=== PATIENT | female | born 2000 | race Caucasian/White ===

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

== ENCOUNTER 2019-01-18 02:50 | Emergency (ER) | payer BC ==
--- NOTE | 2019-01-18 03:06 | EDPHYS ---
Physician Documentation [facility] Name: Troy Salazar Age: 18 yrs Sex: Female : 2000 Arrival Date: 01/18/2019 Time: 02:51 Bed 18 Private MD: ED Physician Javier Hua HPI: 01/18 03:02 This 18 yrs old Female presents to ER via Ambulatory with complaints of Ear gs Pain. 03:02 The patient presents with pain. The complaints affect the right ear. Onset: The gs symptoms/episode began/occurred yesterday. Modifying factors: The symptoms are alleviated by nothing, the symptoms are aggravated by nothing. Associated signs and symptoms: Pertinent negatives: fever, vomiting. Severity of symptoms: At their worst the symptoms were moderate in the emergency department the symptoms are unchanged. The patient has not experienced similar symptoms in the past. The patient has not recently seen a physician. 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 - Social history:: Smoking status: Patient uses tobacco products, denies chronic smoking, but will smoke occasionally, Patient uses alcohol, occasionally. - Ebola Screening: : Patient negative for fever greater than or equal to 101.5 degrees Fahrenheit, and additional compatible Ebola Virus Disease symptoms Patient denies exposure to infectious person Patient denies travel to an Ebola-affected area in the 21 days before illness onset. ROS: 03:02 All other systems are negative. gs Exam: 03:02 Head/Face: Normocephalic, atraumatic. Eyes: Pupils equal round and reactive to light, gs extra-ocular motions intact. Lids and lashes normal. Conjunctiva and sclera are non-icteric and not injected. Cornea within normal limits. Periorbital areas with no swelling, redness, or edema. Neck: Trachea midline, no thyromegaly or masses palpated, and no cervical lymphadenopathy. Supple, full range of motion without nuchal rigidity, or vertebral point tenderness. No Meningismus. Chest/axilla: Normal chest wall appearance and motion. Nontender with no deformity. No lesions are appreciated. Cardiovascular: Regular rate and rhythm with a normal S1 and S2. No gallops, murmurs, or rubs. Normal PMI, no JVD. No pulse deficits. Respiratory: Lungs have equal breath sounds bilaterally, clear to auscultation and percussion. No rales, rhonchi or wheezes noted. No increased work of breathing, no retractions or nasal flaring. Abdomen/GI: Soft, non-tender, with normal bowel sounds. No distension or tympany. No guarding or rebound. No evidence of tenderness throughout. Back: No spinal tenderness. No costovertebral tenderness. Full range of motion. Skin: Warm, dry with normal turgor. Normal color with no rashes, no lesions, and no evidence of cellulitis. MS/ Extremity: Pulses equal, no cyanosis. Neurovascular intact. Full, normal range of motion. Neuro: Awake and alert, GCS 15, oriented to person, place, time, and situation. Cranial nerves II-XII grossly intact. Motor strength 5/5 in all extremities. Sensory grossly intact. Cerebellar exam normal. Normal gait. 03:02 Constitutional: The patient appears alert, awake, uncomfortable. 03:02 ENT: Ear canal(s): are normal, TM's: dullness, fluid levels, loss of bony landmarks, that is pronounced, on the right. Vital Signs: 02:50 BP 132 / 83; Pulse 102; Resp 18; Temp 98.2(O); Pulse Ox 99% on R/A; Weight 129.27 kg fc (R); Height 5 ft. 7 in. (170.18 cm) (R); Pain 9/10; 02:50 Body Mass Index 44.64 (129.27 kg, 170.18 cm) fc MDM: 02:59 Patient medically screened. gs 03:02 Differential diagnosis: otitis media. Data reviewed: vital signs, nurses notes. gs Response to treatment: the patient's symptoms have mildly improved after treatment. Administered Medications: 03:15 Drug: Emmet 5 mg-325 mg 1 tabs Route: PO; ed1 03:15 Follow up: Response: Medication administered at discharge. ed1 Disposition: 01/18/19 03:04 Discharged to Home. Impression: Bullous myringitis, right ear. - Condition is Stable. - Discharge Instructions: Otitis Media, Adult. - Prescriptions for Tylenol- Codeine #4 300-60 mg Oral Tablet - take 1 tablet by ORAL route every 6 hours As needed; 10 tablet. Zithromax Z- Fransico 250 mg Oral Tablet - take 1 tablet by ORAL route as directed for 5 days Day 1 - take two (2) tablets one time. Day 2, 3, 4 , 5 take one (1) tablet once daily.; 6 tablet. Ciprodex 0.3- 0.1 % Otic Drops, Suspension - instill 4 drop by OTIC route every 12 hours for 7 days , for ears ONLY; 1 Container. - Work release form, Medication Reconciliation Form, Thank You Letter, Antibiotic Education, Prescription Opioid Use form. - Follow up: Private Physician; When: 2 - 3 days; Reason: Re-evaluation by your physician. Signatures: Areli Ramirez RN RN Anne Phan RN RN ed1 Javier Hua MD MD Corrections: (The following items were deleted from the chart) 03:16 03:04 01/18/2019 03:04 Discharged to Home. Impression: Bullous myringitis, right ear. ed1 Condition is Stable. Forms are Medication Reconciliation Form, Thank You Letter, Antibiotic Education, Prescription Opioid Use. Follow up: Private Physician; When: 2 - 3 days; Reason: Re-evaluation by your physician. gs
--- NOTE | 2019-01-18 03:06 | ER ---
Nurse's Notes [facility] Name: Troy Salazar Age: 18 yrs Sex: Female : 2000 Arrival Date: 01/18/2019 Time: 02:51 Bed 18 Private MD: Diagnosis: Bullous myringitis, right ear Presentation: 01/18 02:50 Presenting complaint: Patient states: that she is having right ear pain that radiates fc to the right jaw. Denies sore throat. Started yesterday. Transition of care: patient was not received from another setting of care. Onset of symptoms was January 18, 2019. Risk Assessment: Do you want to hurt yourself or someone else? Patient reports no desire to harm self or others. Initial Sepsis Screen: Does the patient meet any 2 criteria? HR > 90 bpm. Yes Does the patient have a suspected source of infection? No. Patient's initial sepsis screen is negative. Care prior to arrival: Medication(s) given: Tylenol, last at 2100 Tylenol #3 last at 1500. 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 - Social history:: Smoking status: Patient uses tobacco products, denies chronic smoking, but will smoke occasionally, Patient uses alcohol, occasionally. - Ebola Screening: : Patient negative for fever greater than or equal to 101.5 degrees Fahrenheit, and additional compatible Ebola Virus Disease symptoms Patient denies exposure to infectious person Patient denies travel to an Ebola-affected area in the 21 days before illness onset. Screenin:01 Abuse screen: Denies threats or abuse. Nutritional screening: No deficits noted. fc Tuberculosis screening: No symptoms or risk factors identified. Fall Risk None identified. Assessment: 03:13 General: Appears uncomfortable, Behavior is calm, cooperative. Pain: Complains of pain ed1 in right ear Pain currently is 9 out of 10 on a pain scale. Quality of pain is described as throbbing, Pain began 1 day ago. Is continuous. Neuro: Level of Consciousness is awake, alert, obeys commands, Oriented to person, place, time, situation. Cardiovascular: Denies chest pain, Heart tones S1 S2 present. Respiratory: Reports cough that is non-productive, Airway is patent Respiratory effort is even, unlabored, Respiratory pattern is regular, symmetrical, Breath sounds are clear bilaterally. GI: No signs and/or symptoms were reported involving the gastrointestinal system. : No signs and/or symptoms were reported regarding the genitourinary system. EENT: Reports pain when swallowing. Derm: Skin is intact, is healthy with good turgor, Skin is dry, Skin is normal, Skin temperature is warm. Musculoskeletal: Circulation, motion, and sensation intact. Range of motion: intact in all extremities. Vital Signs: 02:50 BP 132 / 83; Pulse 102; Resp 18; Temp 98.2(O); Pulse Ox 99% on R/A; Weight 129.27 kg fc (R); Height 5 ft. 7 in. (170.18 cm) (R); Pain 9/10; 02:50 Body Mass Index 44.64 (129.27 kg, 170.18 cm) ED Course: 02:50 Arm band placed on Patient placed in an exam room, on a stretcher. fc 02:51 Patient arrived in ED. es 02:52 Anne Phan, RN is Primary Nurse. ed1 02:54 Javier Hua MD is Attending Physician. 02:58 Triage completed. fc 03:01 Patient has correct armband on for positive identification. Bed in low position. Call light in reach. 03:01 No provider procedures requiring assistance completed. fc 03:13 Patient did not have IV access during this emergency room visit. ed1 Administered Medications: 03:15 Drug: Lynbrook 5 mg-325 mg 1 tabs Route: PO; ed1 03:15 Follow up: Response: Medication administered at discharge. ed1 Outcome: 03:04 Discharge ordered by . gs 03:13 Discharged to home ambulatory. ed1 03:13 Condition: good 03:13 Discharge instructions given to patient, Instructed on discharge instructions, follow up and referral plans. medication usage, Demonstrated understanding of instructions, follow-up care, medications, Prescriptions given X 3. 03:16 Patient left the ED. ed1 Signatures: Tawnya Novak Felicia, RN RN fc Anne Phan RN RN ed1 Javier Hua MD MD gs
[2019-01-18] MEDS ORDERED: HYDROCODONE/APAP 5/325 MG TAB ONE (03:23)
== END 2019-01-18 03:16 | disposition home or self-care (01) ==
LOC: ER 02:50
DX: H73.011 Bullous myringitis, right ear (principal); Z88.8 Allergy status to other drugs, medicaments and biological substances; Z72.0 Tobacco use
CPT/HCPCS: 99283

== ENCOUNTER 2019-01-21 11:54 | Emergency (ER) | payer BC ==
--- NOTE | 2019-01-21 12:44 | ER ---
Nurse's Notes [facility] Name: Troy Salazar Age: 18 yrs Sex: Female : 2000 Arrival Date: 01/21/2019 Time: 11:56 Bed 12 Private MD: Hammad Herrera Diagnosis: Unspecified otitis externa, right ear Presentation: 01/21 12:18 Presenting complaint: Patient states: seen Thursday for ear infection, seen Thursday at er [facility] for the infection, taking antibiotics, seen at clinic today but they said my ear canal was closed up and to come back to the er. Transition of care: patient was not received from another setting of care. Onset of symptoms was January 17, 2019. Risk Assessment: Do you want to hurt yourself or someone else? Patient reports no desire to harm self or others. Initial Sepsis Screen: Does the patient meet any 2 criteria? No. Patient's initial sepsis screen is negative. Does the patient have a suspected source of infection? No. Patient's initial sepsis screen is negative. Care prior to arrival: None. 12:18 Method Of Arrival: Ambulatory 12:18 Acuity: KAVON 4 Triage Assessment: 12:20 General: Appears in no apparent distress. uncomfortable, Behavior is calm, cooperative, ch appropriate for age. Pain: Complains of pain in right ear Pain currently is 9 out of 10 on a pain scale. EENT: Reports pain in right ear. 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 - Social history:: Smoking status: Patient/guardian denies using tobacco, Patient/guardian denies using alcohol, street drugs. - Ebola Screening: : Patient negative for fever greater than or equal to 101.5 degrees Fahrenheit, and additional compatible Ebola Virus Disease symptoms Patient denies exposure to infectious person Patient denies travel to an Ebola-affected area in the 21 days before illness onset No symptoms or risks identified at this time. Screenin:47 Abuse screen: Denies threats or abuse. Denies injuries from another. Nutritional iw screening: No deficits noted. Tuberculosis screening: No symptoms or risk factors identified. Fall Risk None identified. Assessment: 12:30 General: Appears in no apparent distress. Pain: Complains of pain in right ear. Neuro: iw Level of Consciousness is awake, alert, obeys commands, Moves all extremities. Cardiovascular: Patient's skin is warm and dry. Respiratory: Respiratory effort is even, unlabored. EENT: Ear canal w/ drainage noted from right ear. Derm: Skin is intact, is healthy with good turgor. Musculoskeletal: Range of motion: intact in all extremities. Vital Signs: 12:20 BP 121 / 83; Pulse 76; Resp 15; Temp 98.5; Pulse Ox 99% on R/A; Weight 129.27 kg; ch Height 5 ft. 6 in. (167.64 cm); Pain 8/10; 12:20 Body Mass Index 46.00 (129.27 kg, 167.64 cm) ED Course: 11:56 Patient arrived in ED. rg4 11:56 Hammad Herrera MD is Private Physician. rg4 12:03 Poly Grey FNP-C is [facility]. kb 12:03 Eduard Shine MD is Attending Physician. kb 12:19 Triage completed. ch 12:20 Arm band placed on left wrist. Patient placed in an exam room, on a stretcher. 12:30 Lynda Estes, RN is Primary Nurse. iw 12:30 Patient has correct armband on for positive identification. iw 12:47 No provider procedures requiring assistance completed. Patient did not have IV access iw during this emergency room visit. Administered Medications: No medications were administered Outcome: 12:43 Discharge ordered by . kb 12:47 Discharged to home ambulatory, with family. iw 12:47 Condition: good 12:47 Discharge instructions given to patient, Instructed on discharge instructions, follow up and referral plans. Demonstrated understanding of instructions, follow-up care. 12:48 Patient left the ED. iw Signatures: Poly Grey FNP-C FNP-Ckb Hammond, Christina, RN RN Lynda Estes, RN RN Desire Vaughan rg4
--- NOTE | 2019-01-21 12:44 | EDPHYS ---
Physician Documentation [facility] Name: Troy Salazar Age: 18 yrs Sex: Female : 2000 Arrival Date: 01/21/2019 Time: 11:56 Bed 12 Private MD: Hammad Herrera ED Physician Eduard Shine HPI: 01/21 12:38 This 18 yrs old Female presents to ER via Ambulatory with complaints of Ear kb Pain. 12:38 The patient presents with drainage, a fullness, pain, tenderness. The complaints affect kb the right ear. Onset: The symptoms/episode began/occurred 4 day(s) ago. Modifying factors: The symptoms are alleviated by nothing, the symptoms are aggravated by nothing. Associated signs and symptoms: The patient has no apparent associated signs or symptoms. Severity of symptoms: At their worst the symptoms were moderate in the emergency department the symptoms are unchanged. The patient has not experienced similar symptoms in the past. The patient has been recently seen by a physician:. Pt reports she has had an ear infection for 4 days. Has been seen three times, put on clindamycin, a z-pack and ciprodex. Reports pain and fever has not gotten better so she went back to clinic today and was told she had too much swelling so they don't think the drops could get in. . 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 - Social history:: Smoking status: Patient/guardian denies using tobacco, Patient/guardian denies using alcohol, street drugs. - Ebola Screening: : Patient negative for fever greater than or equal to 101.5 degrees Fahrenheit, and additional compatible Ebola Virus Disease symptoms Patient denies exposure to infectious person Patient denies travel to an Ebola-affected area in the 21 days before illness onset No symptoms or risks identified at this time. ROS: 12:41 Constitutional: Negative for fever, chills, and weight loss, Cardiovascular: Negative kb for chest pain, palpitations, and edema, Respiratory: Negative for shortness of breath, cough, wheezing, and pleuritic chest pain, Abdomen/GI: Negative for abdominal pain, nausea, vomiting, diarrhea, and constipation, MS/Extremity: Negative for injury and deformity, Skin: Negative for injury, rash, and discoloration, Neuro: Negative for headache, weakness, numbness, tingling, and seizure. 12:41 ENT: Positive for drainage from ear(s), ear pain. Exam: 12:41 Constitutional: This is a well developed, well nourished patient who is awake, alert, kb and in no acute distress. Head/Face: Normocephalic, atraumatic. Neck: Trachea midline, no thyromegaly or masses palpated, and no cervical lymphadenopathy. Supple, full range of motion without nuchal rigidity, or vertebral point tenderness. No Meningismus. Chest/axilla: Normal chest wall appearance and motion. Nontender with no deformity. No lesions are appreciated. Cardiovascular: Regular rate and rhythm with a normal S1 and S2. No gallops, murmurs, or rubs. Normal PMI, no JVD. No pulse deficits. Respiratory: Lungs have equal breath sounds bilaterally, clear to auscultation and percussion. No rales, rhonchi or wheezes noted. No increased work of breathing, no retractions or nasal flaring. Abdomen/GI: Soft, non-tender, with normal bowel sounds. No distension or tympany. No guarding or rebound. No evidence of tenderness throughout. Skin: Warm, dry with normal turgor. Normal color with no rashes, no lesions, and no evidence of cellulitis. MS/ Extremity: Pulses equal, no cyanosis. Neurovascular intact. Full, normal range of motion. Neuro: Awake and alert, GCS 15, oriented to person, place, time, and situation. Cranial nerves II-XII grossly intact. Motor strength 5/5 in all extremities. Sensory grossly intact. Cerebellar exam normal. Normal gait. 12:41 ENT: External ear(s): are unremarkable, Ear canal(s): purulent discharge, that is moderate, in the right canal, swelling, that is severe, of the right canal, TM's: not visable, because of discharge, Examination of the other ear shows no obvious abnormality, Nose: is normal, Mouth: is normal, Posterior pharynx: is normal. Vital Signs: 12:20 BP 121 / 83; Pulse 76; Resp 15; Temp 98.5; Pulse Ox 99% on R/A; Weight 129.27 kg; ch Height 5 ft. 6 in. (167.64 cm); Pain 8/10; 12:20 Body Mass Index 46.00 (129.27 kg, 167.64 cm) ch MDM: 12:21 Patient medically screened. kb 12:43 Data reviewed: vital signs, nurses notes. Data interpreted: Pulse oximetry: on room air kb is 99 %. Interpretation: normal. Counseling: I had a detailed discussion with the patient and/or guardian regarding: the historical points, exam findings, and any diagnostic results supporting the discharge/admit diagnosis, the need for outpatient follow up, an ENT specialist, to return to the emergency department if symptoms worsen or persist or if there are any questions or concerns that arise at home. Administered Medications: No medications were administered Disposition: 13:47 Co-signature as Attending Physician, Eduard Shine MD I agree with the assessment and alva plan of care. Disposition: 01/21/19 12:43 Discharged to Home. Impression: Unspecified otitis externa, right ear. - Condition is Stable. - Discharge Instructions: Otitis Externa, [id number], Ear Drops, Adult, [id number]. - Medication Reconciliation Form, Thank You Letter, Antibiotic Education, Prescription Opioid Use form. - Follow up: Emergency Department; When: As needed; Reason: Worsening of condition. Follow up: Private Physician; When: 2 - 3 days; Reason: Recheck today's complaints, Continuance of care, Re-evaluation by your physician. - Notes: Continue previously prescribed antibiotics. Signatures: Poly Grey, DAVID-C DAVID-Gabriela Barraza, RN Eduard Baeza ch, MD MD cha Williams, Irene RN RN iw Corrections: (The following items were deleted from the chart) 12:48 12:43 01/21/2019 12:43 Discharged to Home. Impression: Unspecified otitis externa, iw right ear. Condition is Stable. Forms are Medication Reconciliation Form, Thank You Letter, Antibiotic Education, Prescription Opioid Use. Follow up: Emergency Department; When: As needed; Reason: Worsening of condition. Follow up: Private Physician; When: 2 - 3 days; Reason: Recheck today's complaints, Continuance of care, Re-evaluation by your physician. kb
[2019-01-21] MEDS ORDERED: IBUPROFEN 400 MG TAB ONE (12:57)
== END 2019-01-21 12:48 | disposition home or self-care (01) ==
LOC: ER 11:54
DX: H60.91 Unspecified otitis externa, right ear (principal); F84.5 Asperger's syndrome; Z88.1 Allergy status to other antibiotic agents
CPT/HCPCS: 99281

== ENCOUNTER 2019-04-21 22:18 | Emergency (ER) | payer BC ==
[2019-04-21 23:05] LABS: Urine Bacteria >50 /HPF (<20); Urine Culture Reflex Order NOT NEEDED; Urine RBC <5 /HPF (NONE SEEN)
--- NOTE | 2019-04-21 23:15 | ER ---
Nurse's Notes [facility] Name: Troy Salazar Age: 18 yrs Sex: Female : 2000 Arrival Date: 04/21/2019 Time: 22:22 Bed 13 Private MD: Hammad Herrera Diagnosis: Urinary tract infection, site not specified Presentation: 04/21 22:29 Presenting complaint: Patient states: My stomach started camping this morning, and then jb4 my bladder started burning, when I peed it felt like my bladder was not empty, each time I pee it harley. 22:29 Transition of care: patient was not received from another setting of care. Onset of jb4 symptoms was April 21, 2019. Risk Assessment: Do you want to hurt yourself or someone else? Patient reports no desire to harm self or others. Initial Sepsis Screen: Does the patient meet any 2 criteria? HR > 90 bpm. Yes Does the patient have a suspected source of infection? Yes: Acute abdominal pain. Care prior to arrival: None. 22:29 Method Of Arrival: Ambulatory jb4 22:29 Acuity: KAVON 3 jb4 Historical: - Allergies: 22:29 Ceftin; jb4 22:29 durafin; jb4 22:29 Vantin; jb4 22:29 Duricef; jb4 - Home Meds: 22:29 Trazodone Oral [Active]; jb4 - PMHx: 22:29 asbergers; insomnia; jb4 - PSHx: 22:29 None; jb4 - Immunization history:: Adult Immunizations up to date. - Social history:: Smoking status: Patient/guardian denies using tobacco, Patient/guardian denies using alcohol. - Ebola Screening: : No symptoms or risks identified at this time. Screenin:29 Abuse screen: Denies threats or abuse. Nutritional screening: No deficits noted. jb4 Tuberculosis screening: No symptoms or risk factors identified. Fall Risk None identified. Assessment: 22:40 General: Appears in no apparent distress. comfortable, Behavior is calm, cooperative, jb4 appropriate for age. Pain: Complains of pain in abdomen Pain does not radiate. Pain currently is 4 out of 10 on a pain scale. Quality of pain is described as crampy, Pain began this morning. Neuro: Level of Consciousness is awake, alert, obeys commands, Oriented to person, place, time, situation. Cardiovascular: Patient's skin is warm and dry. Respiratory: Airway is patent Respiratory effort is even, unlabored, Respiratory pattern is regular, symmetrical. GI: Abdomen is non-distended, obese, Reports cramping. : Reports burning with urination, cramping, discharge, green, urinary frequency. EENT: No signs and/or symptoms were reported regarding the EENT system. Derm: Skin is intact, Skin is pink, warm \T\ dry. Musculoskeletal: Circulation, motion, and sensation intact. 23:47 Reassessment: Patient appears in no apparent distress at this time. Patient and/or jb4 family updated on plan of care and expected duration. Pain level reassessed. Patient is alert, oriented x 3, equal unlabored respirations, skin warm/dry/pink. Pt left ED ambulatory with steady gate, verbalized understanding of d/c and follow up instrucitons. Vital Signs: 22:29 BP 133 / 71; Pulse 106; Resp 16; Temp 98.7(O); Pulse Ox 99% on R/A; Weight 132.9 kg jb4 (R); Height 5 ft. 5 in. (165.10 cm); Pain 4/10; 23:30 BP 136 / 88; Pulse 85; Resp 16; Pulse Ox 100% on R/A; jb4 22:29 Body Mass Index 48.76 (132.90 kg, 165.10 cm) jb4 ED Course: 22:22 Patient arrived in ED. es 22:22 Hammad Herrera MD is Private Physician. es 22:29 [facility]C [facility]. snw 22:29 Eduard Shine MD is Attending Physician. snw 22:29 Arm band placed on right wrist. jb4 22:29 Patient has correct armband on for positive identification. Placed in gown. Bed in low jb4 position. Call light in reach. Side rails up X 1. Pulse ox on. NIBP on. 22:31 Mihir Kaplan, BRUNO is Primary Nurse. jb4 22:34 Triage completed. jb4 23:11 Hammad Herrera MD is Referral Physician. snw 23:49 No provider procedures requiring assistance completed. Patient did not have IV access jb4 during this emergency room visit. Administered Medications: 23:40 Drug: Bactrim (160 mg-800 mg (DS) 1 tablet Route: PO; jb4 23:45 Follow up: Response: No adverse reaction; Medication administered at discharge. jb4 23:40 Drug: Pyridium 200 mg Route: PO; jb4 23:46 Follow up: Response: No adverse reaction; Medication administered at discharge. jb4 Outcome: 23:11 Discharge ordered by MD. cuevas 23:49 Discharged to home ambulatory. jb4 23:49 Condition: stable 23:49 Discharge instructions given to patient, Instructed on discharge instructions, follow up and referral plans. medication usage, Demonstrated understanding of instructions, follow-up care, medications, Prescriptions given X 2. 23:50 Patient left the ED. jb4 Signatures: Taylor Vigil, CASINO FLOORPERSON-C CASINO FLOORPERSON-Csnw Tawnya Novak James, RN RN jb4 Corrections: (The following items were deleted from the chart) 23:48 22:40 GI: Abdomen is non-distended, obese, Reports cramping, jb4 jb4
--- NOTE | 2019-04-21 23:15 | EDPHYS ---
Physician Documentation [facility] Name: Troy Salazar Age: 18 yrs Sex: Female : 2000 Arrival Date: 04/21/2019 Time: 22:22 Bed 13 Private MD: aHmmad Herrera ED Physician Eduard Shine HPI: 04/21 23:33 This 18 yrs old Female presents to ER via Ambulatory with complaints of snw Abdominal Pain, Bladder pain. 23:33 The patient presents with abdominal pain suprapubic. Onset: The symptoms/episode snw began/occurred gradually, 3 day(s) ago, and became worse and became persistent. The symptoms do not radiate. Associated signs and symptoms: Pertinent positives: dysuria, nausea, Pertinent negatives: fever, vomiting. The symptoms are described as crampy, sharp. Severity of pain: At its worst the pain was moderate. The patient has not experienced similar symptoms in the past. It is unknown whether or not the patient has recently seen a physician. Historical: - Allergies: 22:29 Ceftin; jb4 22:29 durafin; jb4 22:29 Vantin; jb4 22:29 Duricef; jb4 - Home Meds: 22:29 Trazodone Oral [Active]; jb4 - PMHx: 22:29 asbergers; insomnia; jb4 - PSHx: 22:29 None; jb4 - Immunization history:: Adult Immunizations up to date. - Social history:: Smoking status: Patient/guardian denies using tobacco, Patient/guardian denies using alcohol. - Ebola Screening: : No symptoms or risks identified at this time. ROS: 23:31 Constitutional: Negative for fever, chills, and weight loss, Eyes: Negative for injury, snw pain, redness, and discharge, ENT: Negative for injury, pain, and discharge, Neck: Negative for injury, pain, and swelling, Respiratory: Negative for shortness of breath, cough, wheezing, and pleuritic chest pain. 23:31 Cardiovascular: Negative for chest pain, palpitations, and edema, Abdomen/GI: Negative for abdominal pain, nausea, vomiting, diarrhea, and constipation, Back: Negative for injury and pain, MS/Extremity: Negative for injury and deformity, Skin: Negative for injury, rash, and discoloration, Neuro: Negative for headache, weakness, numbness, tingling, and seizure. 23:31 : Positive for urinary symptoms, urinary frequency, small amounts, burning with urination. Exam: 22:37 Constitutional: This is a well developed, well nourished patient who is awake, alert, snw and in no acute distress. Head/Face: Normocephalic, atraumatic. Eyes: Pupils equal round and reactive to light, extra-ocular motions intact. Lids and lashes normal. Conjunctiva and sclera are non-icteric and not injected. Cornea within normal limits. Periorbital areas with no swelling, redness, or edema. ENT: Nares patent. No nasal discharge, no septal abnormalities noted. Tympanic membranes are normal and external auditory canals are clear. Oropharynx with no redness, swelling, or masses, exudates, or evidence of obstruction, uvula midline. Mucous membranes moist. Neck: Trachea midline, no thyromegaly or masses palpated, and no cervical lymphadenopathy. Supple, full range of motion without nuchal rigidity, or vertebral point tenderness. No Meningismus. Chest/axilla: Normal chest wall appearance and motion. Nontender with no deformity. No lesions are appreciated. Cardiovascular: Regular rate and rhythm with a normal S1 and S2. No gallops, murmurs, or rubs. Normal PMI, no JVD. No pulse deficits. Respiratory: Lungs have equal breath sounds bilaterally, clear to auscultation and percussion. No rales, rhonchi or wheezes noted. No increased work of breathing, no retractions or nasal flaring. Back: No spinal tenderness. No costovertebral tenderness. Full range of motion. Skin: Warm, dry with normal turgor. Normal color with no rashes, no lesions, and no evidence of cellulitis. MS/ Extremity: Pulses equal, no cyanosis. Neurovascular intact. Full, normal range of motion. Neuro: Awake and alert, GCS 15, oriented to person, place, time, and situation. Cranial nerves II-XII grossly intact. Motor strength 5/5 in all extremities. Sensory grossly intact. Cerebellar exam normal. Normal gait. Psych: Awake, alert, with orientation to person, place and time. Behavior, mood, and affect are within normal limits. 22:37 Abdomen/GI: Inspection: abdomen appears normal, Bowel sounds: normal, Palpation: mild abdominal tenderness, in the suprapubic area. Vital Signs: 22:29 BP 133 / 71; Pulse 106; Resp 16; Temp 98.7(O); Pulse Ox 99% on R/A; Weight 132.9 kg jb4 (R); Height 5 ft. 5 in. (165.10 cm); Pain 4/10; 23:30 BP 136 / 88; Pulse 85; Resp 16; Pulse Ox 100% on R/A; jb4 22:29 Body Mass Index 48.76 (132.90 kg, 165.10 cm) jb4 MDM: 22:35 Patient medically screened. alva 23:32 Data reviewed: vital signs, nurses notes. Data interpreted: Pulse oximetry: on room air snw is 99 %. Interpretation: normal. Counseling: I had a detailed discussion with the patient and/or guardian regarding: the historical points, exam findings, and any diagnostic results supporting the discharge/admit diagnosis, lab results, the need for outpatient follow up, to return to the emergency department if symptoms worsen or persist or if there are any questions or concerns that arise at home. Special discussion: Based on the patient's Hx, exam, and Dx evaluation, there is no indication for emergent surgery or inpatient Tx. It is understood by the patient/guardian that if the Sx's persist or worsen they need to return immediately for re-evaluation. Based on the history and exam findings, there is no indication for further emergent testing or inpatient evaluation. I discussed with the patient/guardian the need to see the primary care provider for further evaluation of the symptoms. 04/21 22:36 Order name: Urine Culture w 04/21 22:36 Order name: Urine Microscopic Only; Complete Time: 23:10 w 04/21 23:06 Order name: Urine Dipstick--Ancillary (enter results) [facility] 04/21 23:06 Order name: Urine --Ancillary (enter results); Complete Time: 23:30 [facility] 04/21 23:08 Order name: Urine Dipstick-Ancillary; Complete Time: 23:30 EDMS 04/21 22:36 Order name: Urine Test (obtain specimen); Complete Time: 23:29 snw 04/21 22:36 Order name: Urine Dipstick-Ancillary (obtain specimen); Complete Time: 23:29 snw Administered Medications: 23:40 Drug: Bactrim (160 mg-800 mg (DS) 1 tablet Route: PO; jb4 23:45 Follow up: Response: No adverse reaction; Medication administered at discharge. jb4 23:40 Drug: Pyridium 200 mg Route: PO; jb4 23:46 Follow up: Response: No adverse reaction; Medication administered at discharge. jb4 Disposition: 04/22 14:00 Co-signature as Attending Physician, Eduard Shine MD I agree with the assessment and alva plan of care. Disposition: 04/21/19 23:11 Discharged to Home. Impression: Urinary tract infection, site not specified. - Condition is Stable. - Discharge Instructions: Urinary Tract Infection, Adult, Rehydration, Adult. - Prescriptions for Bactrim DS 800- 160 mg Oral Tablet - take 1 tablet by ORAL route every 12 hours for 10 days; 20 tablet. promethazine 25 mg Oral Tablet - take 1 tablet by ORAL route every 6 hours As needed; 20 tablet. - Work release form, Medication Reconciliation Form, Thank You Letter, Antibiotic Education, Prescription Opioid Use form. - Follow up: Hammad Herrera MD; When: 2 - 3 days; Reason: Recheck today's complaints, Continuance of care, Re-evaluation by your physician. Follow up: Emergency Department; When: As needed; Reason: Worsening of condition. Signatures: Dispatcher [employer] Eduard Santiago MD MD cha Therrien, Shelly, PEDIATRIC PATHOLOGIST-C PEDIATRIC PATHOLOGIST-Csnw Mihir Kaplan RN RN jb4 Corrections: (The following items were deleted from the chart) 04/21 23:50 23:11 04/21/2019 23:11 Discharged to Home. Impression: Urinary tract infection, site jb4 not specified. Condition is Stable. Forms are Medication Reconciliation Form, Thank You Letter, Antibiotic Education, Prescription Opioid Use. Follow up: Hammad Herrera; When: 2 - 3 days; Reason: Recheck today's complaints, Continuance of care, Re-evaluation by your physician. Follow up: Emergency Department; When: As needed; Reason: Worsening of condition. snw
[2019-04-21 23:21] LABS: Urine Glucose NEGATIVE (NEG)
[2019-04-21 23:22] LABS: Urine Blood NEGATIVE (NEG); Urine Protein TRACE (NEG)
[2019-04-21] MEDS ORDERED: SMZ./TMP. 800/160 MG TABLET ONE (23:46)
[2019-04-21] MEDS ORDERED: PHENAZOPYRIDINE 100MG TAB PO ONE (23:46)
== END 2019-04-21 23:50 | disposition home or self-care (01) ==
LOC: ER 22:18
DX: N39.0 Urinary tract infection, site not specified (principal); Z88.1 Allergy status to other antibiotic agents; Z88.8 Allergy status to other drugs, medicaments and biological substances
CPT/HCPCS: 81003; 81015; 81025; 87086; 87088; 99283

== ENCOUNTER 2019-05-21 17:39 | Emergency (ER) | payer BC ==
[2019-05-21 18:10] LABS: Urine Blood NEGATIVE (NEG); Urine Glucose NEGATIVE (NEG); Urine Protein 1+ (NEG); Urine Specific Gravity 1.025 (1.005-1.030); Urine pH 5.5 (5.0-7.0)
[2019-05-21] MEDS ORDERED: ONDANSETRON 4 MG/2 ML VIAL ONE (18:14)
[2019-05-21] MEDS ORDERED: KETOROLAC 30 MG/ML INJ ONE (18:14)
[2019-05-21] MEDS ORDERED: NA CHLORIDE 0.9% 1,000 ML ONE (18:15)
[2019-05-21 18:22] LABS: Absolute Lymphocytes (CBC) 1.9 K/uL (0.7-4.9); Basophils % 0.4 % (0-1.3); Hematocrit 43.6 % (36.0-45.0); Lymphocytes % 23.4 % (15.3-44.8); MPV 10.2 fL (7.6-11.3); Monocytes % 4.7 % (3.3-12.3); RBC Red Blood Cell Count 5.11 M/uL (3.86-4.86)
[2019-05-21 18:43] LABS: Albumin 4.1 g/dL (3.4-5.0); Alkaline Phosphatase 158 U/L (45-117); BUN Blood Urea Nitrogen 5 mg/dL (7-18); Bicarbonate 27 mmol/L (21-32); Bilirubin Direct < 0.1 mg/dL (0-0.2); Bilirubin Total 0.4 mg/dL (0.2-1.0); Glucose Level 119 mg/dL (74-106); Lipase 85 U/L (73-393); Potassium 3.7 mmol/L (3.5-5.1); Protein, Total 7.5 g/dL (6.4-8.2); Sodium Level 140 mmol/L (136-145)
[2019-05-21 18:44] LABS: ALT/SGPT 729 U/L (12-78); AST/SGOT 688 U/L (15-37)
--- NOTE | 2019-05-21 19:28 | RAD REPORT ---
EXAM DESCRIPTION: CT - Abdomen Pelvis W Contrast - 05/21/2019 7:12 pm CLINICAL HISTORY: Abdominal pain/left lower quadrant pain COMPARISON: none. TECHNIQUE: Computed axial tomography of the abdomen pelvis was obtained. 100 cc Isovue-300 was admin istered intravenously. Oral contrast was not requested which limits evaluation of bowel. All CT scans are performed using dose optimization technique as appropriate and may include automated exposure control or mA/KV adjustment according to patient size. FINDINGS: The liver, spleen, pancreas, adrenal and kidneys appear unremarkable. There is no evidence of diverticulitis. A normal appendix No adnexal mass. Small umbilical hernia IMPRESSION: No acute abnormality is displayed.
--- NOTE | 2019-05-21 19:45 | ER ---
Nurse's Notes [facility] Name: Troy Salazar Age: 18 yrs Sex: Female : 2000 Arrival Date: 05/21/2019 Time: 17:42 Bed 13 Private MD: Hammad Herrera Diagnosis: Upper abdominal pain, unspecified;Abnormal results of liver function studies Presentation: 05/21 17:43 Presenting complaint: Patient states: "Diana been having stomach pain all day. I went to [facility] go throw up this morning and it was just bile and its right here (pt points to LLQ) and it feels like cramping but I'm not on my cycle and its making me really dizzy and nauseous" reports fever the past couple days. Denies diarrhea. Transition of care: patient was not received from another setting of care. Onset of symptoms was May 21, 2019. Risk Assessment: Do you want to hurt yourself or someone else? Patient reports no desire to harm self or others. Initial Sepsis Screen: Does the patient meet any 2 criteria? HR > 90 bpm. No. Patient's initial sepsis screen is negative. Does the patient have a suspected source of infection? Yes: Acute abdominal pain. Care prior to arrival: None. 17:43 Method Of Arrival: Ambulatory [facility] 17:43 Acuity: KAVON 3 aj1 Triage Assessment: 17:45 General: Appears in no apparent distress. comfortable, Behavior is calm, cooperative, aj1 appropriate for age. Pain: Complains of pain in left lower quadrant Pain currently is 5 out of 10 on a pain scale. Neuro: Level of Consciousness is awake, alert, obeys commands. Cardiovascular: Patient's skin is warm and dry. Respiratory: Airway is patent Respiratory effort is even, unlabored, Respiratory pattern is regular, symmetrical. GI: Reports lower abdominal pain. 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 - Social history:: Smoking status: Patient uses tobacco products, denies chronic smoking, but will smoke occasionally. - Ebola Screening: : Patient denies travel to an Ebola-affected area in the 21 days before illness onset. Screenin:10 Abuse screen: Denies threats or abuse. Denies injuries from another. Nutritional sg screening: No deficits noted. Tuberculosis screening: No symptoms or risk factors identified. Never had TB. Fall Risk None identified. Assessment: 18:10 General: Appears in no apparent distress. well groomed, well developed, well nourished, sg Behavior is calm, cooperative, appropriate for age. Pain: Complains of pain in left lower quadrant Quality of pain is described as aching, tender. Neuro: Level of Consciousness is awake, alert, obeys commands, Oriented to person, place, time, situation. Cardiovascular: Capillary refill is brisk in bilateral fingers Patient's skin is warm and dry. Chest pain is denied. Respiratory: Airway is patent Respiratory effort is even, unlabored, Respiratory pattern is regular, symmetrical. GI: Abdomen is round non-distended, Bowel sounds present X 4 quads. Abd is soft X 4 quads Abdomen is tender to palpation in left lower quadrant. : No signs and/or symptoms were reported regarding the genitourinary system. EENT: No signs and/or symptoms were reported regarding the EENT system. Derm: Skin is pink, warm \\T\\ dry. Musculoskeletal: No signs and/or symptoms reported regarding the musculoskeletal system. 19:41 Reassessment: Patient appears in no apparent distress at this time. Patient and/or wh family updated on plan of care and expected duration. Pain level reassessed. Patient is alert, oriented x 3, equal unlabored respirations, skin warm/dry/pink. Vital Signs: 17:45 BP 136 / 79; Pulse 95; Resp 18; Temp 97.8; Pulse Ox 95% on R/A; Weight 129.27 kg (R); aj1 Height 5 ft. 5 in. (165.10 cm) (R); Pain 5/10; 19:41 BP 124 / 65; Pulse 73; Resp 18; Pulse Ox 98% on R/A; wh 17:45 Body Mass Index 47.43 (129.27 kg, 165.10 cm) aj1 ED Course: 17:42 Patient arrived in ED. 17:42 Hammad Herrera MD is Private Physician. mr 17:45 Triage completed. aj1 17:45 Arm band placed on Patient placed in an exam room. aj1 17:47 Poly Grey F[facility]-C [facility]. kb 17:47 Javier Hua MD is Attending Physician. kb 18:10 Patient has correct armband on for positive identification. Bed in low position. Call sg light in reach. Side rails up X2. Pulse ox on. NIBP on. 18:10 No provider procedures requiring assistance completed. Initial lab(s) drawn, by me. sg Inserted saline lock: 20 gauge in right antecubital area, using aseptic technique. Blood collected. 18:13 Alireza Mane, RN is Primary Nurse. 18:53 Notified Nurse Practitioner and/or Physician Sales And Leasing Consultant of a critical lab result(s), AST hb 688, ALT 729. 19:13 CT Abd/Pelvis - IV Contrast Only In Process Unspecified. EDMS 19:56 IV discontinued, intact, bleeding controlled, No redness/swelling at site. Administered Medications: 18:10 Drug: NS 0.9% 1000 ml Route: IV; Rate: 1000 ml; Site: right antecubital; sg 19:56 Follow up: Response: No adverse reaction; IV Status: Completed infusion 18:10 Drug: Zofran 4 mg Route: IVP; Site: right antecubital; sg 18:51 Follow up: Response: No adverse reaction hb 18:10 Drug: TORadol - Ketorolac 15 mg Route: IVP; Site: right antecubital; sg 18:51 Follow up: Response: No adverse reaction hb Outcome: 19:44 Discharge ordered by . kb 19:55 Discharged to home ambulatory. 19:55 Condition: good 19:55 Discharge instructions given to patient, Instructed on discharge instructions, follow up and referral plans. medication usage, POC Abd pain Demonstrated understanding of instructions, follow-up care, medications, POC Prescriptions given X 2. 19:56 Patient left the ED. Signatures: Dispatcher [employer] EDMS Poly Grey FNP-C FNP-Julisa Styles RN RN aj1 Alireza Mane, RN Jayda Guerra mr Lisa Diallo RN RN bb Baxter, Heather, RN RN hb Malinda Gipson Corrections: (The following items were deleted from the chart) 19:39 19:39 Reassessment: Patient appears in no apparent distress at this time. Patient bb and/or family updated on plan of care and expected duration. Pain level reassessed. Patient is alert, oriented x 3, equal unlabored respirations, skin warm/dry/pink. bb
--- NOTE | 2019-05-21 19:45 | EDPHYS ---
Physician Documentation [facility] Name: Troy Salazar Age: 18 yrs Sex: Female : 2000 Arrival Date: 05/21/2019 Time: 17:42 Bed 13 Private MD: Hammad Herrera ED Physician Javier Hua HPI: 05/21 18:29 This 18 yrs old Female presents to ER via Ambulatory with complaints of kb Abdominal Pain. 18:29 The patient presents with abdominal pain in the left upper quadrant. Onset: The kb symptoms/episode began/occurred this morning. The symptoms do not radiate. Associated signs and symptoms: Pertinent positives: nausea and vomiting, fever. The symptoms are described as constant. Modifying factors: The symptoms are alleviated by nothing, the symptoms are aggravated by nothing. Severity of pain: At its worst the pain was moderate in the emergency department the pain is unchanged. The patient has not experienced similar symptoms in the past. The patient has not recently seen a physician. 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 - Social history:: Smoking status: Patient uses tobacco products, denies chronic smoking, but will smoke occasionally. - Ebola Screening: : Patient denies travel to an Ebola-affected area in the 21 days before illness onset. ROS: 18:29 Constitutional: Negative for fever, chills, and weight loss, ENT: Negative for injury, kb pain, and discharge, Neck: Negative for injury, pain, and swelling, Cardiovascular: Negative for chest pain, palpitations, and edema, Respiratory: Negative for shortness of breath, cough, wheezing, and pleuritic chest pain, Back: Negative for injury and pain, : Negative for injury, bleeding, discharge, and swelling, MS/Extremity: Negative for injury and deformity, Skin: Negative for injury, rash, and discoloration, Neuro: Negative for headache, weakness, numbness, tingling, and seizure. 18:29 Abdomen/GI: Positive for abdominal pain, nausea and vomiting, Negative for diarrhea, constipation, abdominal cramps, abdominal distension, anorexia. Exam: 18:29 Constitutional: This is a well developed, well nourished patient who is awake, alert, kb and in no acute distress. Head/Face: Normocephalic, atraumatic. ENT: Nares patent. No nasal discharge, no septal abnormalities noted. Tympanic membranes are normal and external auditory canals are clear. Oropharynx with no redness, swelling, or masses, exudates, or evidence of obstruction, uvula midline. Mucous membranes moist. Neck: Trachea midline, no thyromegaly or masses palpated, and no cervical lymphadenopathy. Supple, full range of motion without nuchal rigidity, or vertebral point tenderness. No Meningismus. Chest/axilla: Normal chest wall appearance and motion. Nontender with no deformity. No lesions are appreciated. Cardiovascular: Regular rate and rhythm with a normal S1 and S2. No gallops, murmurs, or rubs. Normal PMI, no JVD. No pulse deficits. Respiratory: Lungs have equal breath sounds bilaterally, clear to auscultation and percussion. No rales, rhonchi or wheezes noted. No increased work of breathing, no retractions or nasal flaring. Skin: Warm, dry with normal turgor. Normal color with no rashes, no lesions, and no evidence of cellulitis. MS/ Extremity: Pulses equal, no cyanosis. Neurovascular intact. Full, normal range of motion. Neuro: Awake and alert, GCS 15, oriented to person, place, time, and situation. Cranial nerves II-XII grossly intact. Motor strength 5/5 in all extremities. Sensory grossly intact. Cerebellar exam normal. Normal gait. 18:29 Abdomen/GI: Inspection: abdomen appears normal, Bowel sounds: normal, in all quadrants, Palpation: soft, in all quadrants, mild abdominal tenderness, in the left upper quadrant and left lower quadrant. Vital Signs: 17:45 BP 136 / 79; Pulse 95; Resp 18; Temp 97.8; Pulse Ox 95% on R/A; Weight 129.27 kg (R); aj1 Height 5 ft. 5 in. (165.10 cm) (R); Pain 5/10; 19:41 BP 124 / 65; Pulse 73; Resp 18; Pulse Ox 98% on R/A; wh 17:45 Body Mass Index 47.43 (129.27 kg, 165.10 cm) aj1 MDM: 17:47 Patient medically screened. kb 18:29 Data reviewed: vital signs, nurses notes. Data interpreted: Pulse oximetry: on room air kb is 95 %. Interpretation: normal. 19:41 Data reviewed: I have discussed the patient's presentation/case with the attending Emergency Department Physician;. Counseling: I had a detailed discussion with the patient and/or guardian regarding: the historical points, exam findings, and any diagnostic results supporting the discharge/admit diagnosis, lab results, radiology results, the need for outpatient follow up, a family practitioner, to return to the emergency department if symptoms worsen or persist or if there are any questions or concerns that arise at home. ED course: . 05/21 17:54 Order name: Basic Metabolic Panel; Complete Time: 18:48 kb 05/21 17:54 Order name: CBC with Diff; Complete Time: 18:27 kb 05/21 17:54 Order name: Hepatic Function; Complete Time: 18:48 kb 05/21 17:54 Order name: Lipase; Complete Time: 18:48 kb 05/21 18:06 Order name: Urine Dipstick--Ancillary (enter results); Complete Time: 18:12 hb 05/21 18:48 Order name: CT Abd/Pelvis - IV Contrast Only; Complete Time: 19:38 kb 05/21 17:54 Order name: IV Saline Lock; Complete Time: 17:57 kb 05/21 17:54 Order name: Labs collected and sent; Complete Time: 17:57 kb Administered Medications: 18:10 Drug: NS 0.9% 1000 ml Route: IV; Rate: 1000 ml; Site: right antecubital; sg 19:56 Follow up: Response: No adverse reaction; IV Status: Completed infusion 18:10 Drug: Zofran 4 mg Route: IVP; Site: right antecubital; sg 18:51 Follow up: Response: No adverse reaction hb 18:10 Drug: TORadol - Ketorolac 15 mg Route: IVP; Site: right antecubital; sg 18:51 Follow up: Response: No adverse reaction hb Disposition: 05/22 07:21 Co-signature as Attending Physician, Javier Hua MD. Disposition: 05/21/19 19:44 Discharged to Home. Impression: Upper abdominal pain, unspecified, Abnormal results of liver function studies. - Condition is Stable. - Discharge Instructions: Abdominal Pain, Adult, [id number]. - Prescriptions for Zofran 4 mg Oral Tablet - take 1 tablet by ORAL route every 6 hours As needed; 20 tablet. Bentyl 20 mg Oral Tablet - take 1 tablet by ORAL route every 6 hours As needed; 20 tablet. - Medication Reconciliation Form, Thank You Letter, Antibiotic Education, Prescription Opioid Use, Work release form form. - Follow up: Emergency Department; When: As needed; Reason: Worsening of condition. Follow up: Private Physician; When: 2 - 3 days; Reason: Recheck today's complaints, Continuance of care, Re-evaluation by your physician. Signatures: Dispatcher [employer] EDMS Poly Grey, DAVID-C CONSIGNEE-Julisa Styles RN RN aj1 Alireza Mane RN RN Malinda Gipson Javier Hua MD MD Eve Barragan RN Corrections: (The following items were deleted from the chart) 05/21 19:56 19:44 05/21/2019 19:44 Discharged to Home. Impression: Upper abdominal pain, wh unspecified; Abnormal results of liver function studies. Condition is Stable. Discharge Instructions: Abdominal Pain, Adult, [id number]. Prescriptions for Zofran 4 mg Oral Tablet - take 1 tablet by ORAL route every 6 hours As needed; 20 tablet. and Forms are Medication Reconciliation Form, Thank You Letter, Antibiotic Education, Prescription Opioid Use. Follow up: Emergency Department; When: As needed; Reason: Worsening of condition. Follow up: Private Physician; When: 2 - 3 days; Reason: Recheck today's complaints, Continuance of care, Re-evaluation by your physician. kb
== END 2019-05-21 19:56 | disposition home or self-care (01) ==
LOC: ER 17:39
DX: R94.5 Abnormal results of liver function studies (principal); Z72.0 Tobacco use; Z88.8 Allergy status to other drugs, medicaments and biological substances
CPT/HCPCS: 36415; 74177; 80048; 80076; 81003; 83690; 85025; 96361; 96374; 96375; 99284; J2405; J7030; Q9967

== ENCOUNTER 2019-06-13 16:33 | Emergency (ER) | payer BC ==
--- NOTE | 2019-06-13 17:21 | ER ---
Nurse's Notes [facility] Name: Troy Salazar Age: 18 yrs Sex: Female : 2000 Arrival Date: 06/13/2019 Time: 16:35 Bed 11 Private MD: Hammad Herrera Diagnosis: Unspecified otitis externa, right ear Presentation: 06/13 16:39 Presenting complaint: Patient states: i had an ear infection on my L ear and it got hj well and not its the R ear, reports pain and discharges;. Transition of care: patient was not received from another setting of care. Onset of symptoms was June 13, 2019. Risk Assessment: Do you want to hurt yourself or someone else? Patient reports no desire to harm self or others. Initial Sepsis Screen: Does the patient meet any 2 criteria? No. Patient's initial sepsis screen is negative. Does the patient have a suspected source of infection? No. Patient's initial sepsis screen is negative. Care prior to arrival: None. 16:39 Method Of Arrival: Ambulatory 16:39 Acuity: KAVON 4 hj Triage Assessment: 17:48 General: Appears in no apparent distress. Behavior is calm. 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 - Social history:: Smoking status: unknown. - Family history:: not pertinent. - Ebola Screening: : Patient negative for fever greater than or equal to 101.5 degrees Fahrenheit, and additional compatible Ebola Virus Disease symptoms Patient denies exposure to infectious person Patient denies travel to an Ebola-affected area in the 21 days before illness onset No symptoms or risks identified at this time. - Hospitalizations: : No recent hospitalization is reported. Screenin:48 Abuse screen: Denies threats or abuse. Denies injuries from another. Nutritional iw screening: No deficits noted. Tuberculosis screening: No symptoms or risk factors identified. Fall Risk None identified. Assessment: 17:10 General: Appears in no apparent distress. comfortable. Pain: Complains of pain in right iw ear. EENT: No signs and/or symptoms were reported regarding the EENT system. Vital Signs: 16:40 BP 131 / 68; Pulse 101; Resp 18; Temp 98.6(TE); Pulse Ox 98% on R/A; Weight 135.62 kg; hj Height 5 ft. 6 in. (167.64 cm); Pain 9/10; 16:40 Body Mass Index 48.26 (135.62 kg, 167.64 cm) ED Course: 16:35 Patient arrived in ED. rg4 16:35 Hammad Herrera MD is Private Physician. rg4 16:40 Triage completed. hj 16:40 Arm band placed on left wrist. hj 17:10 Rakesh Rice MD is Attending Physician. rn 17:10 Patient has correct armband on for positive identification. iw 17:19 Anita Crouch MD is Referral Physician. rn 17:47 Lynda Estes RN is Primary Nurse. iw 17:48 No provider procedures requiring assistance completed. Patient did not have IV access iw during this emergency room visit. Administered Medications: No medications were administered Outcome: 17:20 Discharge ordered by . rn 17:48 Discharged to home ambulatory. iw 17:48 Condition: good 17:48 Discharge instructions given to patient, Instructed on discharge instructions, follow up and referral plans. medication usage, Demonstrated understanding of instructions, follow-up care, medications, Prescriptions given X 2. 17:49 Patient left the ED. iw Signatures: Lynda Estes, RN BRUNO iw Rakesh Rice MD MD rn Joaquin, Henry, RN RN hj Garcia, Rubi rg4 Corrections: (The following items were deleted from the chart) 16:41 16:40 Pulse 101bpm; Resp 18bpm; Pulse Ox 98% RA; Temp 98.6F Temporal; 135.62 kg; Height hj 5 ft. 6 in.; BMI: 48.2; Pain 9/10; hj
--- NOTE | 2019-06-13 17:22 | EDPHYS ---
Physician Documentation [facility] Name: Troy Salazar Age: 18 yrs Sex: Female : 2000 Arrival Date: 06/13/2019 Time: 16:35 Bed 11 Private MD: Hammad Herrera ED Physician Rakesh Rice HPI: 06/13 17:17 This 18 yrs old Female presents to ER via Ambulatory with complaints of Ear rn Pain. 17:17 The patient presents with pain. The complaints affect the right ear. Onset: The rn symptoms/episode began/occurred yesterday. Modifying factors: The symptoms are alleviated by nothing, the symptoms are aggravated by nothing. Severity of symptoms: At their worst the symptoms were moderate in the emergency department the symptoms are unchanged. The patient has experienced similar episodes in the past. Reports recurrent ear infections, just got over left ear infection, had inner ear infection and finished abx. [place] and now has painful right ear, worse with movement and pulling.. 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 - Social history:: Smoking status: unknown. - Family history:: not pertinent. - Ebola Screening: : Patient negative for fever greater than or equal to 101.5 degrees Fahrenheit, and additional compatible Ebola Virus Disease symptoms Patient denies exposure to infectious person Patient denies travel to an Ebola-affected area in the 21 days before illness onset No symptoms or risks identified at this time. - Hospitalizations: : No recent hospitalization is reported. ROS: 17:17 Constitutional: Negative for fever, chills, and weight loss, Eyes: Negative for injury, rn pain, redness, and discharge, ENT: + right ear pain Neck: Negative for injury, pain, and swelling, Neuro: Negative for headache, weakness, numbness, tingling, and seizure. Exam: 17:17 Constitutional: This is a well developed, well nourished patient who is awake, alert, rn and in no acute distress. Head/Face: Normocephalic, atraumatic. Eyes: Pupils equal round and reactive to light, extra-ocular motions intact. Lids and lashes normal. Conjunctiva and sclera are non-icteric and not injected. Cornea within normal limits. Periorbital areas with no swelling, redness, or edema. ENT: Right external auditory canal with inflammation and swelling, + clear drainage, no visible perforation Vital Signs: 16:40 BP 131 / 68; Pulse 101; Resp 18; Temp 98.6(TE); Pulse Ox 98% on R/A; Weight 135.62 kg; hj Height 5 ft. 6 in. (167.64 cm); Pain 9/10; 16:40 Body Mass Index 48.26 (135.62 kg, 167.64 cm) hj MDM: 17:10 Patient medically screened. rn 17:17 Differential diagnosis: otitis externa. Data reviewed: vital signs, nurses notes, and rn as a result, I will discharge patient. Counseling: I had a detailed discussion with the patient and/or guardian regarding: the historical points, exam findings, and any diagnostic results supporting the discharge/admit diagnosis, the need for outpatient follow up, to return to the emergency department if symptoms worsen or persist or if there are any questions or concerns that arise at home. Special discussion: I discussed with the patient/guardian in detail that at this point there is no indication for admission to the hospital. It is understood, however, that if the symptoms persist or worsen the patient needs to return immediately for re-evaluation. Administered Medications: No medications were administered Disposition: 06/13/19 17:20 Discharged to Home. Impression: Unspecified otitis externa, right ear. - Condition is Stable. - Discharge Instructions: Ear Drops, Adult, Otitis Externa. - Prescriptions for Cortisporin- TC 3.3-3-10-0.5 mg/mL Otic Suspension - instill 4 drop by OTIC route every 6 hours; 1 bottle. Ibuprofen 800 mg Oral Tablet - take 1 tablet by ORAL route every 12 hours As needed take with food; 20 tablet. - Medication Reconciliation Form, Thank You Letter, Antibiotic Education, Prescription Opioid Use form. - Work release form (06/13/19 17:51). iw - Follow up: Anita Crouch MD; When: As needed; Reason: Recheck today's complaints, Re-evaluation by your physician. - Problem is new. - Symptoms have improved. Signatures: Lynda Estes RN RN iw Nieto, Roman, MD MD rn Joaquin, Henry, RN RN Corrections: (The following items were deleted from the chart) 17:49 17:20 06/13/2019 17:20 Discharged to Home. Impression: Unspecified otitis externa, iw right ear. Condition is Stable. Forms are Medication Reconciliation Form, Thank You Letter, Antibiotic Education, Prescription Opioid Use. Follow up: Anita Crouch; When: As needed; Reason: Recheck today's complaints, Re-evaluation by your physician. Problem is new. Symptoms have improved. rn
== END 2019-06-13 17:49 | disposition home or self-care (01) ==
LOC: ER 16:33
DX: H60.91 Unspecified otitis externa, right ear (principal); F84.5 Asperger's syndrome; Z88.1 Allergy status to other antibiotic agents
CPT/HCPCS: 99282

== ENCOUNTER 2019-08-19 22:28 | Emergency (ER) | payer BC ==
[2019-08-19] MEDS ORDERED: ACETAMINOPHEN 325 MG TABLET ONE (22:55)
[2019-08-19] MEDS ORDERED: ACETAMINOPHEN 500 MG TAB ONE (23:01)
--- NOTE | 2019-08-19 23:48 | ER ---
Nurse's Notes [facility] Name: Troy Salazar Age: 18 yrs Sex: Female : 2000 Arrival Date: 08/19/2019 Time: 22:31 Bed 18 Private MD: Diagnosis: Influenza due to other identified influenza virus;Acute upper respiratory infection, unspecified Presentation: 08/19 22:40 Presenting complaint: Patient states: that this am she woke up with cough, as the day fc progressed she started to have fever, body aches, and congestion. States that she is also short of breath. Transition of care: patient was not received from another setting of care. Onset of symptoms was August 19, 2019. Risk Assessment: Do you want to hurt yourself or someone else? Patient reports no desire to harm self or others. Initial Sepsis Screen: Does the patient meet any 2 criteria? Temp <36.0*C (96.8*F)) or > 38.3*C (100.9*F). HR > 90 bpm. Yes Does the patient have a suspected source of infection? Yes: Productive cough/pneumonia. Care prior to arrival: Medication(s) given: Motrin, 400 mg, at 1300. 22:40 Method Of Arrival: Ambulatory 22:40 Acuity: KAVON 3 fc Triage Assessment: 08/20 00:18 Respiratory: the patient has mild shortness of breath. 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 - Social history:: Smoking status: Patient uses tobacco products, smokes one-half pack cigarettes per day, Patient/guardian denies using alcohol, street drugs. - Ebola Screening: : Patient negative for fever greater than or equal to 101.5 degrees Fahrenheit, and additional compatible Ebola Virus Disease symptoms Patient denies exposure to infectious person Patient denies travel to an Ebola-affected area in the 21 days before illness onset. Screenin:50 Abuse screen: Denies threats or abuse. Nutritional screening: No deficits noted. fc Tuberculosis screening: No symptoms or risk factors identified. Fall Risk None identified. Assessment: 23:00 General: Appears uncomfortable, obese, well groomed, Behavior is calm, cooperative. cr4 Pain: Complains of pain in chest Pain does not radiate. Neuro: Reports weakness Denies dizziness, difficulty swallowing, numbness. Cardiovascular: Heart tones S1 S2 Rhythm is regular. Respiratory: Reports cough that is non-productive, hacking, Airway is patent Respiratory effort is even, unlabored, Respiratory pattern is regular, Breath sounds are clear bilaterally. Breath sounds are diminished in left posterior lower lobe and right posterior lower lobe Onset: The symptoms/episode began/occurred this morning. GI: No signs and/or symptoms were reported involving the gastrointestinal system. : No signs and/or symptoms were reported regarding the genitourinary system. EENT: No signs and/or symptoms were reported regarding the EENT system. Derm: No deficits noted. Musculoskeletal: No deficits noted. 08/20 00:00 Reassessment: No changes from previously documented assessment. Patient and/or family cr4 updated on plan of care and expected duration. Pain level reassessed. Patient is alert, oriented x 3, equal unlabored respirations, skin warm/dry/pink. Vital Signs: 08/19 22:55 BP 143 / 92; Pulse 112; Resp 20; Temp 101.8(O); Pulse Ox 96% on R/A; Weight 131.54 kg fc (R); Height 5 ft. 5 in. (165.10 cm) (R); Pain 9/10; 23:58 Temp 99.4; cr4 08/20 00:10 BP 121 / 81; Pulse 88; Resp 18; Temp 99.4; Pulse Ox 98% ; cr4 08/19 22:55 Body Mass Index 48.26 (131.54 kg, 165.10 cm) ED Course: 08/19 22:31 Patient arrived in ED. cl3 22:42 [facility]C [facility]. snw 22:43 Eduard Shine MD is Attending Physician. snw 22:50 Patient has correct armband on for positive identification. Placed in gown. Bed in low fc position. Call light in reach. Pulse ox on. NIBP on. 22:50 No provider procedures requiring assistance completed. fc 22:51 Triage completed. fc 22:55 Arm band placed on Patient placed in an exam room, on a stretcher. fc 08/20 00:18 Patient did not have IV access during this emergency room visit. cr4 Administered Medications: 08/19 22:53 CANCELLED (Duplicate Order): Tylenol 650 mg PO once fc 23:07 Drug: Tylenol 1000 mg Route: PO; cr4 23:58 Follow up: Temp 99.4; Response: Temperature is decreased cr4 23:58 Drug: Tamiflu 75 mg Route: PO; cr4 08/20 00:19 Follow up: Response: No adverse reaction cr4 08/19 23:58 Drug: Zithromax 500 mg Route: PO; cr4 08/20 00:19 Follow up: Response: No adverse reaction cr4 Outcome: 08/19 23:48 Discharge ordered by . sn 08/20 00:15 Patient left the ED. cr4 00:17 Discharged to home ambulatory, with significant other. cr4 00:17 Condition: stable 00:17 Discharge instructions given to patient, significant other, Instructed on discharge instructions, follow up and referral plans. medication usage, Demonstrated understanding of instructions, follow-up care, medications, Prescriptions given X 3. Signatures: Taylor Vigil, DAVID-C STEAM SHOVEL RUNNER-Csnw Areli Rmairez RN RN Nitza Mcintyre RN RN cr4 Rosemarie Mitchell cl3
--- NOTE | 2019-08-19 23:49 | EDPHYS ---
Physician Documentation [facility] Name: Troy Salazar Age: 18 yrs Sex: Female : 2000 Arrival Date: 08/19/2019 Time: 22:31 Bed 18 Private MD: ORIANA Physician dEuard Shine HPI: 08/19 23:16 This 18 yrs old Female presents to ER via Ambulatory with complaints of snw Shortness Of Breath, Fever. 23:16 This 18 yrs old Female presents to ER via Ambulatory with complaints of snw Shortness Of Breath, Fever. 23:18 The patient or guardian reports cough, difficulty breathing, flu symptoms, low-grade snw fever, myalgias. Onset: The symptoms/episode began/occurred suddenly, today. Modifying factors: The symptoms are alleviated by nothing. Associated signs and symptoms: Pertinent positives: chest pain, fever, rhinorrhea. Severity of symptoms: At their worst the symptoms were moderate. The patient has not experienced similar symptoms in the past. It is unknown whether or not the patient has recently seen a physician. 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 - Social history:: Smoking status: Patient uses tobacco products, smokes one-half pack cigarettes per day, Patient/guardian denies using alcohol, street drugs. - Ebola Screening: : Patient negative for fever greater than or equal to 101.5 degrees Fahrenheit, and additional compatible Ebola Virus Disease symptoms Patient denies exposure to infectious person Patient denies travel to an Ebola-affected area in the 21 days before illness onset. ROS: 23:15 Eyes: Negative for injury, pain, redness, and discharge, ENT: Negative for injury, snw pain, and discharge, + congestion Neck: Negative for injury, pain, and swelling. 23:15 Respiratory: Negative for shortness of breath, cough, wheezing, and pleuritic chest pain, Abdomen/GI: Negative for abdominal pain, nausea, vomiting, diarrhea, and constipation, Back: Negative for injury and pain, : Negative for injury, bleeding, discharge, and swelling, MS/Extremity: Negative for injury and deformity, Neuro: Negative for headache, weakness, numbness, tingling, and seizure. 23:15 Skin: Negative for injury, rash, and discoloration, Psych: Negative for depression, anxiety, suicide ideation, homicidal ideation, and hallucinations. 23:15 Constitutional: Positive for fever, malaise. 23:15 Cardiovascular: Positive for palpitations. Exam: 23:11 Head/Face: Normocephalic, atraumatic. Eyes: Pupils equal round and reactive to light, snw extra-ocular motions intact. Lids and lashes normal. Conjunctiva and sclera are non-icteric and not injected. Cornea within normal limits. Periorbital areas with no swelling, redness, or edema. ENT: Nares patent. No nasal discharge, no septal abnormalities noted. + mucosal edema. congested. Tympanic membranes are normal and external auditory canals are clear. Oropharynx with no redness, swelling, or masses, exudates, or evidence of obstruction, uvula midline. Mucous membranes moist. Neck: Trachea midline, no thyromegaly or masses palpated, and no cervical lymphadenopathy. Supple, full range of motion without nuchal rigidity, or vertebral point tenderness. No Meningismus. Chest/axilla: Normal chest wall appearance and motion. Nontender with no deformity. No lesions are appreciated. 23:11 Respiratory: Lungs have equal breath sounds bilaterally, clear to auscultation and percussion. No rales, rhonchi or wheezes noted. No increased work of breathing, no retractions or nasal flaring. Abdomen/GI: Soft, non-tender, with normal bowel sounds. No distension or tympany. No guarding or rebound. No evidence of tenderness throughout. Back: No spinal tenderness. No costovertebral tenderness. Full range of motion. MS/ Extremity: Pulses equal, no cyanosis. Neurovascular intact. Full, normal range of motion. Neuro: Awake and alert, GCS 15, oriented to person, place, time, and situation. Cranial nerves II-XII grossly intact. Motor strength 5/5 in all extremities. Sensory grossly intact. Cerebellar exam normal. Normal gait. Psych: Awake, alert, with orientation to person, place and time. Behavior, mood, and affect are within normal limits. 23:11 Constitutional: The patient appears alert, awake, frail, obese, obviously ill. 23:11 Cardiovascular: Rate: tachycardic, Rhythm: regular, Pulses: no pulse deficits are appreciated. 23:11 Skin: Appearance: normal except for affected area, Color: normal in color, Temperature: hot, Moisture: damp. Vital Signs: 22:55 BP 143 / 92; Pulse 112; Resp 20; Temp 101.8(O); Pulse Ox 96% on R/A; Weight 131.54 kg fc (R); Height 5 ft. 5 in. (165.10 cm) (R); Pain 9/10; 23:58 Temp 99.4; cr4 08/20 00:10 BP 121 / 81; Pulse 88; Resp 18; Temp 99.4; Pulse Ox 98% ; cr4 08/19 22:55 Body Mass Index 48.26 (131.54 kg, 165.10 cm) fc MDM: 08/19 22:45 Patient medically screened. snw 23:49 Data reviewed: vital signs, nurses notes. Data interpreted: Pulse oximetry: on room air snw is 96 %. Interpretation: acceptable. Counseling: I had a detailed discussion with the patient and/or guardian regarding: the historical points, exam findings, and any diagnostic results supporting the discharge/admit diagnosis, lab results, the need for outpatient follow up, to return to the emergency department if symptoms worsen or persist or if there are any questions or concerns that arise at home. Special discussion: I have referred the patient to see his PCP for further evaluation of high blood pressure. Based on the history and exam findings, there is no indication for further emergent testing or inpatient evaluation. I discussed with the patient/guardian the need to see the primary care provider for further evaluation of the symptoms. 08/19 22:51 Order name: Flu; Complete Time: 23:39 snw Administered Medications: 22:53 CANCELLED (Duplicate Order): Tylenol 650 mg PO once fc 23:07 Drug: Tylenol 1000 mg Route: PO; cr4 23:58 Follow up: Temp 99.4; Response: Temperature is decreased cr4 23:58 Drug: Tamiflu 75 mg Route: PO; cr4 08/20 00:19 Follow up: Response: No adverse reaction cr4 08/19 23:58 Drug: Zithromax 500 mg Route: PO; cr4 08/20 00:19 Follow up: Response: No adverse reaction cr4 Disposition: 08/19/19 23:48 Discharged to Home. Impression: Influenza due to other identified influenza virus, Acute upper respiratory infection, unspecified. - Condition is Stable. - Discharge Instructions: Influenza, Adult, Upper Respiratory Infection, Adult, Fatigue. - Prescriptions for Tamiflu 75 mg Oral Capsule - take 1 capsule by ORAL route every 12 hours for 5 days; 10 capsule. Tessalon Perles 100 mg Oral Capsule - take 1 capsule by ORAL route every 8 hours As needed; 15 capsule. Zithromax Z- Fransico 250 mg Oral Tablet - take 1 tablet by ORAL route as directed for 5 days Day 1 - take two (2) tablets one time. Day 2, 3, 4 , 5 take one (1) tablet once daily.; 6 tablet. - Work release form, Medication Reconciliation Form, Thank You Letter, Antibiotic Education, Prescription Opioid Use form. - Follow up: Private Physician; When: 2 - 3 days; Reason: Recheck today's complaints, Continuance of care, Re-evaluation by your physician. Follow up: Emergency Department; When: As needed; Reason: Worsening of condition. Addendum: 08/22/2019 08:26 Co-signature as Attending Physician, Eduard Shine MD I agree with the assessment and c ramos plan of care. Signatures: Dispatcher [employer] [facility] Eduard Shine MD MD cha Therrien, Shelly, POWERHOUSE ELECTRICIAN APPRENTICE-C POWERHOUSE ELECTRICIAN APPRENTICE-Csnw Areli Ramirez RN RN fc Nitza Mcintyre, RN RN cr4 Corrections: (The following items were deleted from the chart) 08/19 22:53 22:51 Tylenol 650 mg PO once ordered. cr4 08/20 00:15 08/19 23:48 08/19/2019 23:48 Discharged to Home. Impression: Influenza due to other cr4 identified influenza virus; Acute upper respiratory infection, unspecified. Condition is Stable. Forms are Medication Reconciliation Form, Thank You Letter, Antibiotic Education, Prescription Opioid Use. Follow up: Private Physician; When: 2 - 3 days; Reason: Recheck today's complaints, Continuance of care, Re-evaluation by your physician. Follow up: Emergency Department; When: As needed; Reason: Worsening of condition. mason
[2019-08-20 01:30] VITALS: BP 143/92; O2SAT 96
[2019-08-20 01:31] VITALS: TEMP 99.4
== END 2019-08-20 00:15 | disposition home or self-care (01) ==
LOC: ER 22:28
DX: J10.1 Influenza due to other identified influenza virus with other respiratory manifestations (principal); F41.9 Anxiety disorder, unspecified; F90.9 Attention-deficit hyperactivity disorder, unspecified type; F17.210 Nicotine dependence, cigarettes, uncomplicated; Z88.1 Allergy status to other antibiotic agents; Z88.8 Allergy status to other drugs, medicaments and biological substances
CPT/HCPCS: 87804; 99283

== ENCOUNTER 2019-09-15 22:15 | Emergency (ER) | payer BC ==
--- NOTE | 2019-09-15 23:26 | ER ---
Nurse's Notes [facility] Name: Troy Salazar Age: 18 yrs Sex: Female : 2000 Arrival Date: 09/15/2019 Time: 22:18 Bed 15 Private MD: Diagnosis: Acute pharyngitis Presentation: 09/15 22:25 Presenting complaint: Patient states: throat pain and SOB since this morning. pt ak1 boyfriend has strep throat. Transition of care: patient was not received from another setting of care. Onset of symptoms was September 15, 2019. Risk Assessment: Do you want to hurt yourself or someone else? Patient reports no desire to harm self or others. Initial Sepsis Screen: Does the patient meet any 2 criteria? No. Patient's initial sepsis screen is negative. Does the patient have a suspected source of infection? No. Patient's initial sepsis screen is negative. Care prior to arrival: None. 22:25 Method Of Arrival: Ambulatory ak1 22:25 Acuity: KAVON 4 ak1 Triage Assessment: 22:27 General: Appears in no apparent distress. Behavior is calm, cooperative. 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 - Social history:: Smoking status: Patient/guardian denies using tobacco. - Ebola Screening: : No symptoms or risks identified at this time. Screenin:29 Abuse screen: Denies threats or abuse. Nutritional screening: No deficits noted. jd3 Tuberculosis screening: No symptoms or risk factors identified. Fall Risk Ambulatory Aid- None/Bed Rest/Nurse Assist (0 pts). Gait- Normal/Bed Rest/Wheelchair (0 pts) Mental Status- Oriented to own ability (0 pts). Total Aguirre Fall Scale indicates No Risk (0-24 pts). Assessment: 22:26 General: Appears in no apparent distress. uncomfortable, Behavior is calm, cooperative, jd3 appropriate for age. Pain: Complains of pain in throat Quality of pain is described as aching. Neuro: Level of Consciousness is awake, alert, obeys commands, Oriented to person, place, time, situation. Cardiovascular: Denies chest pain, Capillary refill < 3 seconds Patient's skin is warm and dry. Respiratory: Reports cough that is non-productive, Airway is patent Respiratory effort is even, unlabored, Respiratory pattern is regular, symmetrical, Breath sounds are clear bilaterally. GI: No signs and/or symptoms were reported involving the gastrointestinal system. : No signs and/or symptoms were reported regarding the genitourinary system. EENT: Throat is reddened. Derm: Skin is intact, Skin is dry, Skin is normal, Skin temperature is warm. Musculoskeletal: Circulation, motion, and sensation intact. Range of motion: intact in all extremities. 23:20 Reassessment: Patient appears in no apparent distress at this time. No changes from jd3 previously documented assessment. Patient and/or family updated on plan of care and expected duration. Pain level reassessed. Patient is alert, oriented x 3, equal unlabored respirations, skin warm/dry/pink. awaiting disposition. Vital Signs: 22:24 BP 128 / 86; Pulse 116; Resp 18; Temp 98.7; Pulse Ox 96% on R/A; Weight 133.81 kg (R); ak1 Height 5 ft. 6 in. (167.64 cm) (R); Pain 8/10; 22:24 Body Mass Index 47.61 (133.81 kg, 167.64 cm) ak1 ED Course: 22:18 Patient arrived in ED. cf2 22:19 Suhail Joshi PA is PHCP. jmm 22:19 Eduard Shine MD is Attending Physician. jmm 22:24 Arm band placed on Patient placed in an exam room, on a stretcher, Patient notified of ak1 wait time. 22:26 Triage completed. ak1 22:26 Alexander Azul RN is Primary Nurse. jd3 22:29 Patient has correct armband on for positive identification. Bed in low position. Call jd3 light in reach. Side rails up X 1. 23:46 No provider procedures requiring assistance completed. Patient did not have IV access jd3 during this emergency room visit. Administered Medications: No medications were administered Outcome: 23:25 Discharge ordered by MD. garza 23:46 Discharged to home ambulatory. clay 23:46 Condition: stable 23:46 Discharge instructions given to patient, Instructed on discharge instructions, follow up and referral plans. medication usage, Demonstrated understanding of instructions, follow-up care, medications, Prescriptions given X 1. 23:47 Patient left the ED. clay Signatures: Suhail Joshi PA PA jmm Krenek, Amber RN RN ak1 Alexander Azul RN RN jd3 Pamela Grover 2
--- NOTE | 2019-09-15 23:26 | EDPHYS ---
Physician Documentation [facility] Name: Troy Salazar Age: 18 yrs Sex: Female : 2000 Arrival Date: 09/15/2019 Time: 22:18 Bed 15 Private MD: ED Physician Eduard Shine HPI: 09/15 22:51 This 18 yrs old Female presents to ER via Ambulatory with complaints of Sore jmm Throat. 22:51 The patient presents with sore throat. Onset: The symptoms/episode began/occurred jmm gradually, today. Modifying factors: The symptoms are alleviated by nothing, the symptoms are aggravated by swallowing. Associated signs and symptoms: Pertinent positives: cough, Pertinent negatives. This is a 18 year old female with no chronic medical conditions that presents to the ED with complaints of sore throat and cough beginning this morning. patient states her finace was recently diagnosed with strep. . 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 - Social history:: Smoking status: Patient/guardian denies using tobacco. - Ebola Screening: : No symptoms or risks identified at this time. ROS: 22:51 Cardiovascular: Negative for chest pain, palpitations, and edema. jmm 22:51 Constitutional: Positive for chills. 22:51 ENT: Positive for sore throat. 22:51 Respiratory: Positive for cough. 22:51 All other systems are negative. Exam: 22:51 Constitutional: This is a well developed, well nourished patient who is awake, alert, jmm and in no acute distress. Head/Face: atraumatic. Eyes: EOMI, no conjunctival erythema appreciated 22:51 Neck: Trachea midline, Supple Chest/axilla: Normal chest wall appearance and motion. Cardiovascular: Regular rate and rhythm. No edema appreciated Respiratory: Normal respirations, no respiratory distress appreciated Abdomen/GI: Non distended, soft Back: Normal ROM Skin: General appearance color normal MS/ Extremity: Moves all extremities, no obvious deformities appreciated, no edema noted to the lower extremities Neuro: Awake and alert, normal gait Psych: Behavior is normal, Mood is normal, Patient is cooperative and pleasant 22:51 ENT: Posterior pharynx: erythema, that is moderate, exudate, that is mild. Vital Signs: 22:24 BP 128 / 86; Pulse 116; Resp 18; Temp 98.7; Pulse Ox 96% on R/A; Weight 133.81 kg (R); ak1 Height 5 ft. 6 in. (167.64 cm) (R); Pain 8/10; 22:24 Body Mass Index 47.61 (133.81 kg, 167.64 cm) ak1 MDM: 22:20 Patient medically screened. [facility] 23:24 Data reviewed: vital signs, nurses notes. Counseling: I had a detailed discussion with ari the patient and/or guardian regarding: the historical points, exam findings, and any diagnostic results supporting the discharge/admit diagnosis, lab results, the need for outpatient follow up, to return to the emergency department if symptoms worsen or persist or if there are any questions or concerns that arise at home. ED course: Patient is alert and non toxic in appearance in the ED. patient prescribed oral abx and advised to follow up with pcp. patient given strict return precautions. patient understood and agrees with the plan of care. . 09/15 22:25 Order name: Strep; Complete Time: 23:21 [facility] 09/15 22:25 Order name: Flu; Complete Time: 23:21 [facility] 09/15 23:20 Order name: Throat Culture EDMS Administered Medications: No medications were administered Disposition: 09/16 13:55 Co-signature as Attending Physician, Eduard Shine MD I agree with the assessment and [facility] plan of care. Disposition: 09/15/19 23:25 Discharged to Home. Impression: Acute pharyngitis. - Condition is Stable. - Discharge Instructions: Pharyngitis. - Prescriptions for Amoxicillin 875 mg Oral Tablet - take 1 tablet by ORAL route every 12 hours for 10 days; 20 tablet. - Medication Reconciliation Form, Thank You Letter, Antibiotic Education, Prescription Opioid Use, Work release form form. - Follow up: Private Physician; When: 2 - 3 days; Reason: Recheck today's complaints, Continuance of care, Re-evaluation by your physician. Signatures: Dispatcher [employer] EDEduard Pena MD MD cha Mickail, Joel, PA PA jmm Krenek, Amber, RN RN ak1 Alexander Azul RN RN jd3 Corrections: (The following items were deleted from the chart) 09/15 23:47 23:25 09/15/2019 23:25 Discharged to Home. Impression: Acute pharyngitis. Condition is jd3 Stable. Forms are Medication Reconciliation Form, Thank You Letter, Antibiotic Education, Prescription Opioid Use. Follow up: Private Physician; When: 2 - 3 days; Reason: Recheck today's complaints, Continuance of care, Re-evaluation by your physician. kayla
[2019-09-16 00:41] VITALS: BP 128/86; TEMP 98.7; O2SAT 96
== END 2019-09-15 23:47 | disposition home or self-care (01) ==
LOC: ER 22:15
DX: J02.9 Acute pharyngitis, unspecified (principal); Z88.1 Allergy status to other antibiotic agents; Z88.8 Allergy status to other drugs, medicaments and biological substances
CPT/HCPCS: 87070; 87081; 87804

== ENCOUNTER 2020-01-05 11:30 | Emergency (ER) | payer BC ==
[2020-01-05] MEDS ORDERED: ACETAMINOPHEN 500 MG TAB ONE (12:23)
--- NOTE | 2020-01-05 13:45 | RAD REPORT ---
EXAM DESCRIPTION: Radha Dixon (2 Views)01/05/2020 1:37 pm CLINICAL HISTORY: Cough COMPARISON: 2016 FINDINGS: The lungs appear clear of acute infiltrate. The heart is normal size IMPRESSION: No acute abnormalities displayed
--- NOTE | 2020-01-05 15:02 | ER ---
Nurse's Notes [facility] Name: Troy Salazar Age: 19 yrs Sex: Female : 2000 Arrival Date: 01/05/2020 Time: 11:35 Bed 9 Private MD: Hammad Herrera Diagnosis: Acute upper respiratory infection, unspecified Presentation: 01/04 12:11 Chief complaint: Patient states: last week was seen at urgent care for swollen tonsils iw and fever, was put on azithromycin , finished them yesterday and is still having fever, cough and sore throat, flu and strep were negative at urgent care. Coronavirus screen: The patient has NOT traveled to a country currently being monitored by the [facility] within the last 14 days. Proceed with normal triage procedures. The patient has NOT had contact with any known and/or suspected case of coronavirus. Proceed with normal triage procedures. Ebola Screen: Patient negative for fever greater than or equal to 101.5 degrees Fahrenheit, and additional compatible Ebola Virus Disease symptoms Patient denies exposure to infectious person. Patient denies travel to an Ebola-affected area in the 21 days before illness onset. No symptoms or risks identified at this time. Initial Sepsis Screen: Does the patient meet any 2 criteria? Does the patient have a suspected source of infection? No. Patient's initial sepsis screen is negative. Risk Assessment: Do you want to hurt yourself or someone else? Patient reports no desire to harm self or others. 12:11 Method Of Arrival: Ambulatory 12:11 Acuity: KAVON 3 iw JOINER: 12:14 LMP 12/17/2019 iw Historical: - Allergies: 12:14 Ceftin; iw 12:14 durafin; iw 12:14 DURICEF; iw 12:14 Vantin; iw - Home Meds: 12:14 None [Active]; iw - PMHx: 12:14 ADD/ADHD; Anxiety; asbergers; insomnia; iw - PSHx: 12:14 None; iw - Immunization history:: Adult Immunizations Flu vaccine is up to date. - Social history:: Smoking status: Patient reports the use of cigarette tobacco products, denies chronic smoking, but will smoke occasionally. Vital Signs: 12:11 BP 126 / 79; Pulse 109; Resp 18; Temp 101.2; Pulse Ox 96% on R/A; Weight 133.81 kg; iw Height 5 ft. 5 in. (165.10 cm); Pain 6/10; 14:11 BP 136 / 66; Pulse 90; Resp 18; Temp 98.7(O); Pulse Ox 95% on R/A; iw 12:11 Body Mass Index 49.09 (133.81 kg, 165.10 cm) iw ED Course: 11:35 Patient arrived in ED. mr 11:35 Hammad Herrera MD is Private Physician. mr 11:48 Poly Grey F[facility]-C [facility]. kb 11:48 Jimmy Phelps MD is Attending Physician. kb 12:13 Triage completed. iw 12:14 Arm band placed on. iw 12:26 Flu Sent. iw 12:27 Strep Sent. iw 13:10 Lynda Estes, RN is Primary Nurse. iw 13:44 Chest Pa And Lat (2 Views) XRAY In Process Unspecified. EDMS 14:11 Initial lab(s) drawn, by me. Inserted saline lock: 22 gauge in right antecubital area, iw using aseptic technique. Blood collected. Administered Medications: 12:26 Drug: Tylenol 1000 mg Route: PO; iw Outcome: 15:01 Discharge ordered by . kb 15:27 Patient left the ED. em1 Signatures: Dispatcher [employer] EDMS Poly Grey FNP-C FNP-Ckb Rivera, Mary mr Lynda Estes, RN RN Checo Aguayo em1
--- NOTE | 2020-01-05 15:02 | EDPHYS ---
Physician Documentation [facility] Name: Troy Salazar Age: 19 yrs Sex: Female : 2000 Arrival Date: 01/05/2020 Time: 11:35 Bed 9 Private MD: Hammad Herrera ED Physician Jimmy Phelps HPI: 01/04 13:46 This 19 yrs old Female presents to ER via Ambulatory with complaints of Flu kb Symptoms. 13:46 The patient or guardian reports cough, that is intermittent, described as moderate, flu kb symptoms, low-grade fever, myalgias. Onset: The symptoms/episode began/occurred 1 week(s) ago. Severity of symptoms: At their worst the symptoms were moderate, in the emergency department the symptoms are unchanged. Modifying factors: The symptoms are alleviated by nothing, the symptoms are aggravated by nothing. Associated signs and symptoms: Pertinent positives: fever, rhinorrhea, sore throat. The patient has not experienced similar symptoms in the past. The patient has not recently seen a physician. Pt reports cough and sore throat that started a week ago, was given zithromax from for URI. Came in today because she is still having the same symptoms and fever started yesterday. 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 - Social history:: Smoking status: Patient reports the use of cigarette tobacco products, denies chronic smoking, but will smoke occasionally. ROS: 13:45 Neck: Negative for injury, pain, and swelling, Cardiovascular: Negative for chest pain, kb palpitations, and edema, Abdomen/GI: Negative for abdominal pain, nausea, vomiting, diarrhea, and constipation, Back: Negative for injury and pain, MS/Extremity: Negative for injury and deformity, Skin: Negative for injury, rash, and discoloration, Neuro: Negative for headache, weakness, numbness, tingling, and seizure. 13:45 Constitutional: Positive for body aches, chills, fatigue, fever, malaise. 13:45 ENT: Positive for sore throat. 13:45 Respiratory: Positive for cough. Exam: 13:42 Constitutional: This is a well developed, well nourished patient who is awake, alert, kb and in no acute distress. Head/Face: Normocephalic, atraumatic. Chest/axilla: Normal chest wall appearance and motion. Nontender with no deformity. No lesions are appreciated. Cardiovascular: Regular rate and rhythm with a normal S1 and S2. No gallops, murmurs, or rubs. Normal PMI, no JVD. No pulse deficits. Respiratory: Lungs have equal breath sounds bilaterally, clear to auscultation and percussion. No rales, rhonchi or wheezes noted. No increased work of breathing, no retractions or nasal flaring. Abdomen/GI: Soft, non-tender, with normal bowel sounds. No distension or tympany. No guarding or rebound. No evidence of tenderness throughout. Back: No spinal tenderness. No costovertebral tenderness. Full range of motion. Skin: Warm, dry with normal turgor. Normal color with no rashes, no lesions, and no evidence of cellulitis. MS/ Extremity: Pulses equal, no cyanosis. Neurovascular intact. Full, normal range of motion. Neuro: Awake and alert, GCS 15, oriented to person, place, time, and situation. Cranial nerves II-XII grossly intact. Motor strength 5/5 in all extremities. Sensory grossly intact. Cerebellar exam normal. Normal gait. 13:42 ENT: External ear(s): are unremarkable, Ear canal(s): are normal, TM's: are normal, Nose: is normal, Mouth: is normal, Posterior pharynx: Airway: normal, no evidence of obstruction, Tonsils: enlarged on the left, bilaterally enlarged, Uvula: normal, midline, swelling, that is mild, erythema, that is mild. 13:42 Neck: Lymph nodes: lymphadenopathy is appreciated, anterior cervical nodes. Vital Signs: 12:11 BP 126 / 79; Pulse 109; Resp 18; Temp 101.2; Pulse Ox 96% on R/A; Weight 133.81 kg; iw Height 5 ft. 5 in. (165.10 cm); Pain 6/10; 14:11 BP 136 / 66; Pulse 90; Resp 18; Temp 98.7(O); Pulse Ox 95% on R/A; iw 12:11 Body Mass Index 49.09 (133.81 kg, 165.10 cm) iw MDM: 13:16 Patient medically screened. kb 13:42 Data reviewed: vital signs, nurses notes. Data interpreted: Pulse oximetry: on room air kb is 96 %. Interpretation: normal. 15:01 Counseling: I had a detailed discussion with the patient and/or guardian regarding: the kb historical points, exam findings, and any diagnostic results supporting the discharge/admit diagnosis, lab results, radiology results, the need for outpatient follow up, a family practitioner, to return to the emergency department if symptoms worsen or persist or if there are any questions or concerns that arise at home. 01/04 12:16 Order name: Flu; Complete Time: 12:50 iw 01/04 12:16 Order name: Strep; Complete Time: 12:50 iw 01/04 12:51 Order name: Chest Pa And Lat (2 Views) XRAY; Complete Time: 14:00 kb 01/04 12:53 Order name: Throat Culture EDMS 01/04 13:41 Order name: [place] Screen Profile; Complete Time: 15:01 kb 01/04 13:41 Order name: Vital Signs; Complete Time: 14:55 kb Administered Medications: 12:26 Drug: Tylenol 1000 mg Route: PO; iw Disposition: 17:15 Co-signature as Attending Physician, Jimmy Phelps MD I agree with the assessment and kdr plan of care. Disposition: 01/05/20 15:01 Discharged to Home. Impression: Acute upper respiratory infection, unspecified. - Condition is Stable. - Discharge Instructions: Upper Respiratory Infection, Adult, [id number], Viral Respiratory Infection, [id number]-Bi-Soji. - Prescriptions for Tessalon Perles 100 mg Oral Capsule - take 1 capsule by ORAL route every 8 hours As needed; 15 capsule. - Medication Reconciliation Form, Thank You Letter, Antibiotic Education, Prescription Opioid Use, Work release form form. - Follow up: Emergency Department; When: As needed; Reason: Worsening of condition. Follow up: Private Physician; When: 2 - 3 days; Reason: Recheck today's complaints, Continuance of care, Re-evaluation by your physician. Signatures: Dispatcher [employer] EDMS Poly Grey, DIRECTOR DIGITAL STRATEGY-C DIRECTOR DIGITAL STRATEGY-Ckb Jimmy Phelps MD MD kdr Williams, Irene, BRUNO RN Checo Aguayo Corrections: (The following items were deleted from the chart) 15:27 15:01 01/05/2020 15:01 Discharged to Home. Impression: Acute upper respiratory em1 infection, unspecified. Condition is Stable. Forms are Medication Reconciliation Form, Thank You Letter, Antibiotic Education, Prescription Opioid Use. Follow up: Emergency Department; When: As needed; Reason: Worsening of condition. Follow up: Private Physician; When: 2 - 3 days; Reason: Recheck today's complaints, Continuance of care, Re-evaluation by your physician. kb
[2020-01-05 15:46] VITALS: BP 136/66; TEMP 98.7; O2SAT 95
== END 2020-01-05 15:27 | disposition home or self-care (01) ==
LOC: ER 11:30
DX: J06.9 Acute upper respiratory infection, unspecified (principal); Z88.1 Allergy status to other antibiotic agents; Z88.8 Allergy status to other drugs, medicaments and biological substances; Z72.0 Tobacco use
CPT/HCPCS: 36415; 71046; 86308; 87070; 87081; 87804; 99284

== ENCOUNTER 2022-01-28 09:38 | Emergency (ER) | payer BC ==
--- OUTSIDE RECORDS SUMMARY | 2022-01-28 09:42 | XMS REPORT | Continuity of Care Document ---
:2000 Author Organization [facility] t Address [address] [place] [address] Care Team Providers Name Role Phone KAIT Primary Care Physician Unavailable KEVIN Attending Clinician Unavailable JEB Attending Clinician Unavailable Jeb CEE Attending Clinician Ina CARR M Attending Clinician Unavailable TREMAYNE Attending Clinician Unavailable Lab, - Db Attending Clinician Unavailable Gonzalo Hendrix MD Attending Clinician Gonzalo HENDRIX Attending Clinician Unavailable Doctor Unassigned, Name Attending Clinician Unavailable Case RN A Attending Clinician Unavailable KEVIN Attending Clinician Unavailable Payers Payer Name Policy Type Policy Number Effective Date Expiration Date [id number] 2019 00:00:00 [facility] - [id number] 2019 OUT OF STATE 00:00:00 Problems Condition Condition Condition Status Onset Resolution Last Treating Co mments Source Name Details Category Date Date Treatment Clinician Date Tobacco Tobacco Disease Active Univers abuse abuse 2-27 ity of 00:00: [place] [address] [facility] [place] Generalize Generalize Disease Active U nivers d anxiety d anxiety 1-28 ity of disorder disorder 00:00: [place] [address] Medical Branch Obesity Obesity Disease Active 2020-11 Univers (BMI (BMI 2-29 ity of 30-39.9) 30-39.9) 00:00: [place] [address] Medical Branch 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[place]THC[place] (THC[place] 00 Medical abuse abuse Branch Nausea and Nausea and Disease Active 2020-11 U nivers vomiting vomiting 2-21 ity of in in 00:00: [place] 00 Medi nicholas Branch Screening Screening Disease Active 2020-11 Uni vers examinatio examinatio 2-21 it y of n for STD n [place] ([place]ually 00 [facility] transmitte transmitte Br anch d disease) d disease) Missed Missed Disease Active 2020-11 Univers menses menses 2-21 ity of 00:00: [place] 00 [facility] Chlamydia Chlamydia Disease Active Uni vers trachomati trachomati 3-22 it y of s s 00:00: [place] infection infection 00 [facility] of lower of lower Branch genitourin genitourin brittany sites brittany sites Closed Closed Problem Active Univers extra-cipriano extra-cipriano it y of cular cular [place] fracture fracture Physic i of distal of distal ans end of end of right right radius, radius, initial initial encounter encounter Allergies, Adverse Reactions, Alerts Allergy Allergy Status Severity Reaction(s) Onset Inactive Treating Comm ents Source Name Type Date Date Clinician CEPHALOS Drug Active Anaphylaxis Uni vers PORINS Class 2-04 ity of 00:00: [place] 00 [facility] Cephalos Propensi Active Anaphylaxis U nivers porins ty to 2-04 ity of adverse 00:00: [place] reaction 00 [facility] s [place] Social History Social Habit Start Date Stop Date Quantity Comments Source ASSERTION 2021-09-27 [facility] 00:00:00 [facility] History of tobacco Cigarette Smoker University of use [facility] Exposure to Not sure [facility] of SARS-CoV-2 (event) [facility] History [facility] University o f Alcohol Comment [facility] ica Branch Alcohol intake 2021-12-26 2021-12-26 .43 /d University of 00:00:00 00:00:00 [facility] Cigarettes smoked 2020-12-06 2020-12-06 Univers ity of current (pack per 00:00:00 00:00:00 ) - Reported Branch Cigarette 2020-12-06 2020-12-06 University of pack-years 00:00:00 00:00:00 [facility] Tobacco use and 2020-12-06 2020-12-06 Never used Universit y of exposure 00:00:00 00:00:00 [facility] History SDOH 2020-12-06 2020-12-06 2 University o f Alcohol Frequency 00:00:00 00:00:00 [place] M edical Branch History SDOH 2020-12-06 2020-12-06 2 Long [facility] o f Alcohol Std Drinks 00:00:00 00:00:00 [place] [facility] History SDOH 2020-12-06 2020-12-06 99 Long [facility] o f Alcohol Binge 00:00:00 00:00:00 [facility] al Branch Sex Assigned At [birth year] Universit y of 00:00:00 00:00:00 [facility] Smoking Status Start Date Stop Date Source Current every day smoker 2020-12-06 00:00:00 Uni versity of [place] [facility] Medications Ordered Filled Start Stop Current Ordering Indication Dosage Frequency Signature Comments Components Source Medication Medication Date Date Medication? Clinician (SIG) Name Name polyethylen Yes [id number] 1{packe Take 1 Univers e glycol 2-18 t} Packet by ity of 3350 00:00: mouth [place] (MIRALAX) 00 every 24 Medica l 17 gram (twenty-fo Branch powder ur) hours as needed for Constipati on. polyethylen Yes [id number] 1{packe Take 1 Univers e glycol 2-18 t} Packet by ity of 3350 00:00: mouth [place] (MIRALAX) 00 every 24 Medica l 17 gram (twenty-fo Branch powder ur) hours as needed for Constipati on. metroNIDAZO 2021- Yes [id number] 500mg Take 1 Univers LE 500 mg 11-28 tablet by ity of tablet 00:00: 05:59 mouth [place] 00 :00 every 12 Medical (twelve) Branch hours for 7 days. Do not drink alcohol while taking this medication . VITAMIN B-6 Yes [id number] TAKE 1 Univers 25 mg 1-13 TABLET BY ity of tablet 00:00: MOUTH [place] 00 THREE Medical TIMES A Branch DAY VITAMIN B-6 Yes [id number] TAKE 1 Univers 25 mg 1-13 TABLET BY ity of tablet 00:00: MOUTH [place] 00 THREE Medical TIMES A Branch DAY VITAMIN B-6 Yes [id number] TAKE 1 Univers 25 mg 1-13 TABLET BY ity of tablet 00:00: MOUTH [place] 00 THREE Medical TIMES A Branch DAY VITAMIN B-6 Yes [id number] TAKE 1 Univers 25 mg 1-13 TABLET BY ity of tablet 00:00: MOUTH [place] 00 THREE Medical TIMES A Branch DAY VITAMIN B-6 2021-0 Yes [id number] TAKE 1 Univers 25 mg 1-13 TABLET BY ity of tablet 00:00: MOUTH [place] 00 THREE Medical TIMES A Branch DAY VITAMIN B-6 2021-0 Yes [id number] TAKE 1 Univers 25 mg 1-13 TABLET BY ity of tablet 00:00: MOUTH [place] 00 THREE Medical TIMES A Branch DAY MELATONIN 2020-11- No Take by Uni vers ORAL 2-21 12-21 mouth. ity of 10:21: 00:00 [place] 44 :00 Medical Branch 2020-11- No Take by Univ ers vit/iron 2-21 12-21 mouth. ity of fum/folic 09:40: 00:00 [place] ac (RIGHT 14 :00 Medical STEP Branch VITAMINS ORAL) diphenhydra 2020-11 Yes Take by Un [place] mine HCl 2-21 mouth. ity of (BENADRYL 09:03: [place] ORAL) 05 Medical Branch ascorbic 2020-11 Yes Take by Unive rs acid 2-21 mouth. ity of (VITAMIN C 09:03: [place] ORAL) 05 Medical Branch diphenhydra 2020-11 Yes Take by Un [place] HCl 2-21 mouth. ity of (BENADRYL 09:03: [place] ORAL) 05 Medical Branch ascorbic 2020-11 Yes Take by Unive rs acid 2-21 mouth. ity of (VITAMIN C 09:03: [place] ORAL) 05 Medical Branch diphenhydra 2020-11 Yes Take by Un [place] HCl 2-21 mouth. ity of (BENADRYL 09:03: [place] ORAL) 05 Medical Branch ascorbic 2020-11 Yes Take by Unive rs acid 2-21 mouth. ity of (VITAMIN C 09:03: [place] ORAL) 05 Medical Branch diphenhydra 2020-11 Yes Take by Un [place] HCl 2-21 mouth. ity of (BENADRYL 09:03: [place] ORAL) 05 Medical Branch ascorbic 2020-11 Yes Take by Unive rs acid 2-21 mouth. ity of (VITAMIN C 09:03: [place] ORAL) 05 Medical Branch diphenhydra 2020-11 Yes Take by Un [place] HCl 2-21 mouth. ity of (BENADRYL 09:03: [place] ORAL) 05 Medical Branch ascorbic 2020-11 Yes Take by Unive rs acid 2-21 mouth. ity of (VITAMIN C 09:03: [place] ORAL) 05 Medical Branch diphenhydra 2020-11 Yes Take by Un [place] HCl 2-21 mouth. ity of (BENADRYL 09:03: [place] ORAL) 05 Medical Branch ascorbic 2020-11 Yes Take by Unive rs acid 2-21 mouth. ity of (VITAMIN C 09:03: [place] ORAL) 05 Medical Branch diphenhydra 2020-11 Yes Take by Un [place] HCl 2-21 mouth. ity of (BENADRYL 09:03: [place] ORAL) 05 Medical Branch ascorbic 2020-11 Yes Take by Unive rs acid 2-21 mouth. ity of (VITAMIN C 09:03: [place] ORAL) 05 Medical Branch diphenhydra 2020-11 Yes Take by Un [place] HCl 2-21 mouth. ity of (BENADRYL 09:03: [place] ORAL) 05 Medical Branch ascorbic 2020-11 Yes Take by Unive rs acid 2-21 mouth. ity of (VITAMIN C 09:03: [place] ORAL) 05 Medical Branch diphenhydra 2020-11 Yes Take by Un [place] HCl 2-21 mouth. ity of (BENADRYL 09:03: [place] ORAL) 05 Medical Branch ascorbic 2020-11 Yes Take by Unive rs acid 2-21 mouth. ity of (VITAMIN C 09:03: [place] ORAL) 05 Medical Branch diphenhydra 2020-11 Yes Take by Un [place] HCl 2-21 mouth. ity of (BENADRYL 09:03: [place] ORAL) 05 Medical Branch ascorbic 2020-11 Yes Take by Unive rs acid 2-21 mouth. ity of (VITAMIN C 09:03: [place] ORAL) 05 Medical Branch diphenhydra 2020-11 Yes Take by Un [place] HCl 2-21 mouth. ity of (BENADRYL 09:03: [place] ORAL) 05 Medical Branch ascorbic 2020-11 Yes Take by Unive rs acid 2-21 mouth. ity of (VITAMIN C 09:03: [place] ORAL) 05 Medical Branch diphenhydra 2020-11 Yes Take by Un [place] HCl 2-21 mouth. ity of (BENADRYL 09:03: [place] ORAL) 05 Medical Branch ascorbic 2020-11 Yes Take by Unive rs acid 2-21 mouth. ity of (VITAMIN C 09:03: [place] ORAL) 05 Medical Branch diphenhydra 2020-11 Yes Take by Un [place] HCl 2-21 mouth. ity of (BENADRYL 09:03: [place] ORAL) 05 Medical Branch ascorbic 2020-11 Yes Take by Unive rs acid 2-21 mouth. ity of (VITAMIN C 09:03: [place] ORAL) 05 Medical Branch diphenhydra 2020-11 Yes Take by Un [place] HCl 2-21 mouth. ity of (BENADRYL 09:03: [place] ORAL) 05 Medical Branch ascorbic 2020-11 Yes Take by Unive rs acid 2-21 mouth. ity of (VITAMIN C 09:03: [place] ORAL) 05 Medical Branch diphenhydra 2020-11 Yes Take by Un [place] HCl 2-21 mouth. ity of (BENADRYL 09:03: [place] ORAL) Medical Branch ascorbic 2020-11 Yes Take by Unive rs acid 2-21 mouth. ity of (VITAMIN C 09:03: [place] ORAL) 05 Medical Branch pyridoxine, 2020-11 Yes [id number] 25mg Take 1 Univers VITAMIN 2-21 tablet by ity of B-6, 25 mg 00:00: [place] tablet 00 (three) Medical times Branch daily. doxylamine 2020-11 Yes [id number] 25mg Take 1 U nivers 25 mg 2-21 tablet by ity of tablet 00:00: mouth at [place] 00 bedtime. Medical Branch metoclopram 2020-11 Yes [id number] 5mg Take 1 Univers nhan HCl 2-21 tablet by ity of (REGLAN) 5 00:00: mouth [place] mg tablet 00 every 6 Medical (six) Branch hours as needed for Nausea and Vomiting (N/V). 2020-11 Yes [id number] 1{tbl} Take 1 U nivers 78-iron-fol 2-21 tablet by ity of ate 1-dha 00:00: mouth [place] 18 mg 00 daily. Medical iron-1 mg Branch -300 mg Cap pyridoxine, 2020-11 Yes [id number] 25mg Take 1 Univers VITAMIN 2-21 tablet by ity of B-6, 25 mg 00:00: mouth 3 [place] tablet 00 (three) Medical times Branch daily. doxylamine 2020-11 Yes [id number] 25mg Take 1 U nivers 25 mg 2-21 tablet by ity of tablet 00:00: mouth at [place] 00 bedtime. Medical Branch metoclopram 2020-11 Yes [id number] 5mg Take 1 Univers nhan HCl 2-21 tablet by ity of (REGLAN) 5 00:00: mouth [place] mg tablet 00 every 6 Medical (six) Branch hours as needed for Nausea and Vomiting (N/V). 2020-11 Yes [id number] 1{tbl} Take 1 U nivers 78-iron-fol 2-21 tablet by ity of ate 1-dha 00:00: mouth [place] 18 mg 00 daily. Medical iron-1 mg Branch -300 mg Cap pyridoxine, 2020-11 Yes [id number] 25mg Take 1 Univers VITAMIN 2-21 tablet by ity of B-6, 25 mg 00:00: mouth 3 [place] tablet 00 (three) Medical times Branch daily. doxylamine 2020-11 Yes [id number] 25mg Take 1 U nivers 25 mg 2-21 tablet by ity of tablet 00:00: mouth at [place] 00 bedtime. Medical Branch metoclopram 2020-11 Yes [id number] 5mg Take 1 Univers nhan HCl 2-21 tablet by ity of (REGLAN) 5 00:00: mouth [place] mg tablet 00 every 6 Medical (six) Branch hours as needed for Nausea and Vomiting (N/V). 2020-11 Yes [id number] 1{tbl} Take 1 U nivers 78-iron-fol 2-21 tablet by ity of ate 1-dha 00:00: mouth [place] 18 mg 00 daily. Medical iron-1 mg Branch -300 mg Cap pyridoxine, 2020-11 Yes [id number] 25mg Take 1 Univers VITAMIN 2-21 tablet by ity of B-6, 25 mg 00:00: mouth 3 [place] tablet 00 (three) Medical times Branch daily. doxylamine 2020-11 Yes [id number] 25mg Take 1 U nivers 25 mg 2-21 tablet by ity of tablet 00:00: mouth at [place] 00 bedtime. Medical Branch metoclopram 2020-11 Yes [id number] 5mg Take 1 Univers nhan HCl 2-21 tablet by ity of (REGLAN) 5 00:00: mouth [place] mg tablet 00 every 6 Medical (six) Branch hours as needed for Nausea and Vomiting (N/V). 2020-11 Yes [id number] 1{tbl} Take 1 U nivers 78-iron-fol 2-21 tablet by ity of ate 1-dha 00:00: mouth [place] 18 mg 00 daily. Medical iron-1 mg Branch -300 mg Cap pyridoxine, 2020-11 Yes [id number] 25mg Take 1 Univers VITAMIN 2-21 tablet by ity of B-6, 25 mg 00:00: mouth 3 [place] tablet 00 (three) Medical times Branch daily. doxylamine 2020-11 Yes [id number] 25mg Take 1 U nivers 25 mg 2-21 tablet by ity of tablet 00:00: mouth at [place] 00 bedtime. Medical Branch metoclopram 2020-11 Yes [id number] 5mg Take 1 Univers nhan HCl 2-21 tablet by ity of (REGLAN) 5 00:00: mouth [place] mg tablet 00 every 6 Medical (six) Branch hours as needed for Nausea and Vomiting (N/V). 2020-11 Yes [id number] 1{tbl} Take 1 U nivers 78-iron-fol 2-21 tablet by ity of ate 1-dha 00:00: mouth [place] 18 mg 00 daily. Medical iron-1 mg Branch -300 mg Cap pyridoxine, 2020-11 Yes [id number] 25mg Take 1 Univers VITAMIN 2-21 tablet by ity of B-6, 25 mg 00:00: mouth 3 [place] tablet 00 (three) Medical times Branch daily. doxylamine 2020-11 Yes [id number] 25mg Take 1 U nivers 25 mg 2-21 tablet by ity of tablet 00:00: mouth at [place] 00 bedtime. Medical Branch metoclopram 2020-11 Yes [id number] 5mg Take 1 Univers nhan HCl 2-21 tablet by ity of (REGLAN) 5 00:00: mouth [place] mg tablet 00 every 6 Medical (six) Branch hours as needed for Nausea and Vomiting (N/V). 2020-11 Yes [id number] 1{tbl} Take 1 U nivers 78-iron-fol 2-21 tablet by ity of ate 1-dha 00:00: mouth [place] 18 mg 00 daily. Medical iron-1 mg Branch -300 mg Cap pyridoxine, 2020-11 Yes [id number] 25mg Take 1 Univers VITAMIN 2-21 tablet by ity of B-6, 25 mg 00:00: mouth 3 [place] tablet 00 (three) Medical times Branch daily. doxylamine 2020-11 Yes [id number] 25mg Take 1 U nivers 25 mg 2-21 tablet by ity of tablet 00:00: mouth at [place] 00 bedtime. Medical Branch metoclopram 2020-11 Yes [id number] 5mg Take 1 Univers nhan HCl 2-21 tablet by ity of (REGLAN) 5 00:00: mouth [place] mg tablet 00 every 6 Medical (six) Branch hours as needed for Nausea and Vomiting (N/V). 2020-11 Yes [id number] 1{tbl} Take 1 U nivers 78-iron-fol 2-21 tablet by ity of ate 1-dha 00:00: mouth [place] 18 mg 00 daily. Medical iron-1 mg Branch -300 mg Cap pyridoxine, 2020-11 Yes [id number] 25mg Take 1 Univers VITAMIN 2-21 tablet by ity of B-6, 25 mg 00:00: mouth 3 [place] tablet 00 (three) Medical times Branch daily. doxylamine 2020-11 Yes [id number] 25mg Take 1 U nivers 25 mg 2-21 tablet by ity of tablet 00:00: mouth at [place] 00 bedtime. Medical Branch metoclopram 2020-11 Yes [id number] 5mg Take 1 Univers nhan HCl 2-21 tablet by ity of (REGLAN) 5 00:00: mouth [place] mg tablet 00 every 6 Medical (six) Branch hours as needed for Nausea and Vomiting (N/V). 2020-11 Yes [id number] 1{tbl} Take 1 U nivers 78-iron-fol 2-21 tablet by ity of ate 1-dha 00:00: mouth [place] 18 mg 00 daily. Medical iron-1 mg Branch -300 mg Cap doxylamine 2020-11 Yes [id number] 25mg Take 1 U nivers 25 mg 2-21 tablet by ity of tablet 00:00: mouth at [place] 00 bedtime. Medical Branch metoclopram 2020-11 Yes [id number] 5mg Take 1 Univers nhan HCl 2-21 tablet by ity of (REGLAN) 5 00:00: mouth [place] mg tablet 00 every 6 Medical (six) Branch hours as needed for Nausea and Vomiting (N/V). 2020-11 Yes [id number] 1{tbl} Take 1 U nivers 78-iron-fol 2-21 tablet by ity of ate 1-dha 00:00: mouth [place] 18 mg 00 daily. Medical iron-1 mg Branch -300 mg Cap doxylamine 2020-11 Yes [id number] 25mg Take 1 U nivers 25 mg 2-21 tablet by ity of tablet 00:00: mouth at [place] 00 bedtime. Medical Branch metoclopram 2020-11 Yes [id number] 5mg Take 1 Univers nhan HCl 2-21 tablet by ity of (REGLAN) 5 00:00: mouth [place] mg tablet 00 every 6 Medical (six) Branch hours as needed for Nausea and Vomiting (N/V). 2020-11 Yes [id number] 1{tbl} Take 1 U nivers 78-iron-fol 2-21 tablet by ity of ate 1-dha 00:00: mouth [place] 18 mg 00 daily. Medical iron-1 mg Branch -300 mg Cap doxylamine 2020-11 Yes [id number] 25mg Take 1 U nivers 25 mg 2-21 tablet by ity of tablet 00:00: mouth at [place] 00 bedtime. Medical Branch metoclopram 2020-11 Yes [id number] 5mg Take 1 Univers nhan HCl 2-21 tablet by ity of (REGLAN) 5 00:00: mouth [place] mg tablet 00 every 6 Medical (six) Branch hours as needed for Nausea and Vomiting (N/V). 2020-11 Yes [id number] 1{tbl} Take 1 U nivers 78-iron-fol 2-21 tablet by ity of ate 1-dha 00:00: mouth [place] 18 mg 00 daily. Medical iron-1 mg Branch -300 mg Cap doxylamine 2020-11 Yes [id number] 25mg Take 1 U nivers 25 mg 2-21 tablet by ity of tablet 00:00: mouth at [place] 00 bedtime. Medical Branch metoclopram 2020-11 Yes [id number] 5mg Take 1 Univers nhan HCl 2-21 tablet by ity of (REGLAN) 5 00:00: mouth [place] mg tablet 00 every 6 Medical (six) Branch hours as needed for Nausea and Vomiting (N/V). 2020-11 Yes [id number] 1{tbl} Take 1 U nivers 78-iron-fol 2-21 tablet by ity of ate 1-dha 00:00: mouth [place] 18 mg 00 daily. Medical iron-1 mg Branch -300 mg Cap doxylamine 2020-11 Yes [id number] 25mg Take 1 U nivers 25 mg 2-21 tablet by ity of tablet 00:00: mouth at [place] 00 bedtime. Medical Branch metoclopram 2020-11 Yes [id number] 5mg Take 1 Univers nhan HCl 2-21 tablet by ity of (REGLAN) 5 00:00: mouth [place] mg tablet 00 every 6 Medical (six) Branch hours as needed for Nausea and Vomiting (N/V). 2020-11 Yes [id number] 1{tbl} Take 1 U nivers 78-iron-fol 2-21 tablet by ity of ate 1-dha 00:00: mouth [place] 18 mg 00 daily. Medical iron-1 mg Branch -300 mg Cap doxylamine 2020-11 Yes [id number] 25mg Take 1 U nivers 25 mg 2-21 tablet by ity of tablet 00:00: mouth at [place] 00 bedtime. Medical Branch metoclopram 2020-11 Yes [id number] 5mg Take 1 Univers nhan HCl 2-21 tablet by ity of (REGLAN) 5 00:00: mouth [place] mg tablet 00 every 6 Medical (six) Branch hours as needed for Nausea and Vomiting (N/V). 2020-11 Yes [id number] 1{tbl} Take 1 U nivers 78-iron-fol 2-21 tablet by ity of ate 1-dha 00:00: mouth [place] 18 mg 00 daily. Medical iron-1 mg Branch -300 mg Cap doxylamine 2020-11 Yes [id number] 25mg Take 1 U nivers 25 mg 2-21 tablet by ity of tablet 00:00: mouth at [place] 00 bedtime. Medical Branch metoclopram 2020-11 Yes [id number] 5mg Take 1 Univers nhan HCl 2-21 tablet by ity of (REGLAN) 5 00:00: mouth [place] mg tablet 00 every 6 Medical (six) Branch hours as needed for Nausea and Vomiting (N/V). 2020-11 Yes [id number] 1{tbl} Take 1 U nivers 78-iron-fol 2-21 tablet by ity of ate 1-dha 00:00: mouth [place] 18 mg 00 daily. Medical iron-1 mg Branch -300 mg Cap pyridoxine, 2020-11- No [id number] 25mg Take 1 Univers VITAMIN 2-21 - tablet by ity of B-6, 25 mg 00:00: 00:00 mouth 3 [place] tablet 00 :00 (three) Medical times Branch daily. Gabapentin Gabapentin 2019-11 Yes BARBIE BROWN 1 Q0.3333D TAKE 1 Univers 300 MG Oral 300 MG Oral 0-13 M.D. CAPSULE 3 ity of Capsule Capsule 00:00: TIMES [place] 00 DAILY Physici ans Immunizations Ordered Filled Immunization Date Status Comments [facility] e Immunization Name Name SARS-COV-2 COVID-19 2021-09-09 Completed Unive rsity of MODERNA VACCINE 00:00:00 [facility] SARS-COV-2 COVID-19 2021-09-09 Completed Unive rsity of MODERNA VACCINE 00:00:00 [facility] SARS-COV-2 COVID-19 2021-09-09 Completed Unive rsity of MODERNA VACCINE 00:00:00 [facility] SARS-COV-2 COVID-19 2021-09-09 Completed Unive rsity of MODERNA VACCINE 00:00:00 [facility] SARS-COV-2 COVID-19 2021-09-09 Completed Unive rsity of MODERNA VACCINE 00:00:00 [facility] SARS-COV-2 COVID-19 2021-09-09 Completed Unive rsity of MODERNA VACCINE 00:00:00 [facility] SARS-COV-2 COVID-19 2021-09-09 Completed Unive rsity of MODERNA VACCINE 00:00:00 [facility] SARS-COV-2 COVID-19 2021-09-09 Completed Unive rsity of MODERNA VACCINE 00:00:00 [facility] SARS-COV-2 COVID-19 2021-09-09 Completed Unive rsity of MODERNA VACCINE 00:00:00 [facility] SARS-COV-2 COVID-19 2021-09-09 Completed Unive rsity of MODERNA VACCINE 00:00:00 [facility] SARS-COV-2 COVID-19 2021-09-09 Completed Unive rsity of MODERNA VACCINE 00:00:00 [facility] SARS-COV-2 COVID-19 2021-09-09 Completed Unive rsity of MODERNA VACCINE 00:00:00 [facility] SARS-COV-2 COVID-19 2021-09-09 Completed Unive rsity of MODERNA VACCINE 00:00:00 [facility] SARS-COV-2 COVID-19 2021-09-09 Completed Unive rsity of MODERNA VACCINE 00:00:00 [facility] SARS-COV-2 COVID-19 2021-09-09 Completed Unive rsity of MODERNA VACCINE 00:00:00 [facility] HPV 2013-12-15 Completed University of 00:00:00 [facility] HPV 2013-12-15 Completed University of 00:00:00 [facility] HPV 2013-12-15 Completed University of 00:00:00 [facility] HPV 2013-12-15 Completed University of 00:00:00 [facility] HPV 2013-12-15 Completed University of 00:00:00 [facility] HPV 2013-12-15 Completed University of 00:00:00 [facility] HPV 2013-12-15 Completed University of 00:00:00 [facility] HPV 2013-12-15 Completed University of 00:00:00 [facility] HPV 2013-12-15 Completed University of 00:00:00 [facility] HPV 2013-12-15 Completed University of 00:00:00 [facility] HPV 2013-12-15 Completed University of 00:00:00 [facility] HPV 2013-12-15 Completed University of 00:00:00 [facility] HPV 2013-12-15 Completed University of 00:00:00 [facility] HPV 2013-12-15 Completed University of 00:00:00 [facility] HPV 2013-12-15 Completed University of 00:00:00 [facility] HPV 2012-11-15 Completed University of 00:00:00 [facility] HPV 2012-11-15 Completed University of 00:00:00 [facility] HPV 2012-11-15 Completed University of 00:00:00 [place] [facility] HPV 2012-11-15 Completed University of 00:00:00 [place] [facility] HPV 2012-11-15 Completed University of 00:00:00 [place] [facility] HPV 2012-11-15 Completed University of 00:00:00 [place] [facility] HPV 2012-11-15 Completed University of 00:00:00 [place] [facility] HPV 2012-11-15 Completed University of 00:00:00 [place] [facility] HPV 2012-11-15 Completed University of 00:00:00 [place] [facility] HPV 2012-11-15 Completed University of 00:00:00 [place] [facility] HPV 2012-11-15 Completed University of 00:00:00 [place] [facility] HPV 2012-11-15 Completed University of 00:00:00 [place] [facility] HPV 2012-11-15 Completed University of 00:00:00 [place] [facility] HPV 2012-11-15 Completed University of 00:00:00 [facility] HPV 2012-11-15 Completed University of 00:00:00 [facility] Vital Signs Vital Name Observation Time Observation Value Comments Source Systolic blood 2021-12-26 17:16:00 125 mm[Hg] Univer sity of pressure [facility] Diastolic blood 2021-12-26 17:16:00 83 mm[Hg] Unive rsity of [facility] Heart rate 2021-12-26 17:16:00 78 /min [facility] Respiratory rate 2021-12-26 17:16:00 18 /min [facility] height 2021-12-26 17:16:00 167.6 cm [facility] Body weight 2021-12-26 17:16:00 97.07 kg [facility] BMI 2021-12-26 17:16:00 34.54 kg/m2 [facility] Oxygen saturation in 2021-12-26 17:16:00 99 /min [facility] Arterial blood by [facility] Pulse oximetry Branch Systolic blood 2021-11-29 23:44:00 125 mm[Hg] Univer sity of pressure [facility] Diastolic blood 2021-11-29 23:44:00 82 mm[Hg] Unive rsity of pressure [facility] Heart rate 2021-11-28 17:12:00 86 /min [facility] Body temperature 2021-11-28 17:12:00 36.78 Gabrielle [facility] Respiratory rate 2021-11-28 17:12:00 18 /min [facility] Body height 2021-11-28 17:12:00 167.6 cm [facility] Body weight 2021-11-28 17:12:00 94.711 kg [facility] BMI 2021-11-28 17:12:00 33.70 kg/m2 [facility] Systolic blood 2021-10-30 17:23:00 126 mm[Hg] Univer sity of pressure [facility] Diastolic blood 2021-10-30 17:23:00 83 mm[Hg] Unive rsity of pressure [facility] Heart rate 2021-10-30 17:23:00 96 /min [facility] Body temperature 2021-10-30 17:23:00 37.06 Gabrielle [facility] Respiratory rate 2021-10-30 17:23:00 18 /min [facility] Body height 2021-10-30 17:23:00 167.6 cm [facility] Body weight 2021-10-30 17:23:00 91.173 kg [facility] BMI 2021-10-30 17:23:00 32.44 kg/m2 [facility] Systolic blood 2021-10-22 15:02:00 154 mm[Hg] Univer sity of pressure [facility] Diastolic blood 2021-10-22 15:02:00 86 mm[Hg] Unive rsity of pressure [facility] Heart rate 2021-10-22 15:02:00 77 /min [facility] Body temperature 2021-10-22 15:02:00 36.72 Gabrielle [facility] Respiratory rate 2021-10-22 15:02:00 18 /min [facility] Body height 2021-10-22 15:02:00 167.6 cm [facility] Body weight 2021-10-22 15:02:00 94.575 kg [facility] BMI 2021-10-22 15:02:00 33.65 kg/m2 [facility] Procedures Procedure Date / Time Performed Performing Clinician Sourzonia e POCT URINALYSIS W/O 2021-12-26 17:15:00 Abdoulaye Guzmann [facility] SPECIFIC GRAVITY [facility] POCT URINALYSIS 2021-11-28 17:29:00 Jeb Elbert [facility] <14 WEEKS US 2021-10-30 18:12:02 AdumGila [facility] DIRECTOR OF OPERATIONS [facility] 2021-10-30 06:01:00 Doctor Unassigned, Sarita [facility] ULTRASOUND Name [facility] POCT TEST 2021-10-22 15:15:00 Jeb Elbert [facility] POCT URINALYSIS W/O 2021-10-22 15:15:00 Abdoulaye Guzmann [facility] Post Op Promis 29 2020-08-17 00:00:00 [facility] Survey Physicians Encounters Start End Encounter Admission Attending Care Care Encounter Source Date/Time Date/Time Type Type Clinicians Facility Department ID 2021-06-03 Outpatient [facility] [id number] [place] 08:21:53 Health 2021-03-09 Outpatient BARBIE BROWN [facility] [id number] [place] 02:54:49 [facility] 2022-01-23 2022-01-23 Outpatient R ELBERT GUZMAN [facility] [id number] [facility] 10:30:00 10:30:00 [id number] [facility] 2022-01-23 2022-01-23 Outpatient R ELBERT GUZMAN [facility] [id number] Univers 10:30:00 10:30:00 [facility] 2022-01-09 2022-01-09 Outpatient R [facility] [id number] [facility] 10:30:00 10:30:00 [id number] [facility] 2022-01-09 2022-01-09 Outpatient R ELBERT GUZMAN [facility] [id number] Univers 10:30:00 10:30:00 [facility] 2022-01-07 2022-01-07 Outpatient R [facility] [id number] Univers 07:30:00 07:30:00 [id number] ity [facility] 2022-01-07 2022-01-07 Outpatient R [facility] [id number] Univers 07:30:00 07:30:00 ity [facility] 2021-12-26 2021-12-26 Outpatient R ELBERT GUZMAN [facility] [id number] Univers 11:00:00 12:12:42 ity [facility] 2021-12-26 2021-12-26 Routine Elbert Guzman [facility] 1.2.840.114 [id number] Univers 11:00:00 12:12:42 MASOUD [id number] i ty [place] [id number] [address] 2021-12-26 2021-12-26 Outpatient R ELBERT GUZMAN [facility] [id number] Univers 11:00:00 11:00:00 [id number] ity [facility] 2021-12-23 2021-12-23 Outpatient R ELBERT GUZMAN [facility] [id number] Univers 15:30:00 15:30:00 ity [facility] 2021-12-18 2021-12-18 Telephone Elbert Guzman [facility] 1.2.840.11 [id number] Univers 00:00:00 00:00:00 MASOUD [id number] it [id number] [id number] [address] 2021-12-10 2021-12-10 Refill Elbert Guzman [facility] 1.2.840.114 [id number] Univers 00:00:00 00:00:00 MASOUD [id number] it [id number] [id number] [address] 2021-11-28 2021-11-28 Outpatient R ELBERT GUZMAN [facility] [id number] Univers 10:45:00 11:44:35 ity [facility] 2021-11-28 2021-11-28 Routine FishElbert [facility] 1.2.840.114 [id number] Univers 10:45:00 11:44:35 MASOUD [id number] i ty [place] [id number] [address] 2021-11-28 2021-11-28 Outpatient R ELBERT GUZMAN [facility] [id number] Univers 10:45:00 10:45:00 [id number] [facility] 2021-11-18 2021-11-18 Nurse Sarahy Buckley 1.2.840.114 [id number] Univers 00:00:00 00:00:00 Triage CORIN [id number] it y of HOSPITAL 4.2.7.2.686 Doe as [id number] [address] 2021-11-13 2021-11-13 Refill Elbert Guzman [facility] 1.2.840.114 [id number] Univers 00:00:00 00:00:00 MASOUD 350.1.13.10 [id number] [id number] [address] 2021-11-04 2021-11-04 Telephone Elbert Guzman [facility] 1.2.840.11 [id number] Univers 00:00:00 00:00:00 MASOUD 350.1.13.10 [place] [facility] [id number] [address] 2021-10-31 2021-10-31 Outpatient Jun CASPER [facility] [id number] Univers 09:00:00 09:00:00 YUDY [id number] [facility] 2021-10-31 2021-10-31 Outpatient Jun CASPER [facility] [id number] Univers 09:00:00 09:00:00 YUDY [facility] 2021-10-30 2021-10-30 [facility] [place] [facility], Rad - Baron [facility] 1.2.840.1 [id number] Univers 13:15:00 13:30:00 Visit Gila Hendrix [id number] ity of [place] 4.2.7.2.686 Doe as THONY?BLEA [id number] In dical KNEY [address] MEDICAL OFFICE BUILDING 2021-10-30 2021-10-30 Outpatient R ADUM, [facility] [id number] Univers 13:15:00 13:15:00 GILA [id number] ity of [facility] 2021-10-30 2021-10-30 Outpatient R ADUM, [facility] [id number] Univers 11:00:00 12:17:28 GILA ity of [facility] 2021-10-30 2021-10-30 Routine Adum, [facility] 1.2.840.114 [id number] Univers 11:00:00 12:17:28 Gila ADAMS 350.1.13.10 ity of [place] [id number] In dical [facility] [address] [facility] 2021-10-30 2021-10-30 Orders Doctor BARBIE 1.2.840.114 [id number] Univers 00:00:00 00:00:00 Only Unassigned, CORIN 350.1.13.10 ity of [place] [facility] 4.2.7.2.686 Doe as [id number] [facility] [address] 2021-10-28 2021-10-28 Telephone FishElbert [facility] 1.2.840.11 [id number] Univers 00:00:00 00:00:00 MASOUD 350.1.13.10 [place] [id number] [facility] [address] 2021-10-28 2021-10-28 Patient Case, Jackie [facility] ASHLEY 1.2.840.114 [id number] Univers 00:00:00 00:00:00 Secure Msg Manning MASOUD 350.1.13.10 [place] [id number] [facility] [address] 2021-10-24 2021-10-24 [place] [facility], Ang - Baron [facility] 1.2.840.1 [id number] Univers 10:00:00 10:15:00 Visit Elbert Guzman 350.1.13.10 ity of [facility] 4.2.7.2.686 Doe as THONY?BLEA [id number] In nancy SANDY [address] [place] [address] MEDICAL OFFICE BUILDING 2021-10-24 2021-10-24 Outpatient R ELBERT GUZMAN [facility] [id number] Univers 10:00:00 10:00:00 ity of [facility] 2021-10-24 2021-10-24 Telephone Elbert Guzman VAJARETH RAMIREZ 1.2.840.11 [id number] Univers 00:00:00 00:00:00 MASOUD 350.1.13.10 [place] [id number] [address] 2021-10-22 2021-10-22 Outpatient R ELBERT GUZMAN [facility] [id number] Univers 08:30:00 09:50:25 ity of [facility] 2021-10-22 2021-10-22 Initial Elbert Guzman [facility] 1.2.840.114 [id number] Univers 08:30:00 09:50:25 MASOUD 350.1.13.10 i ty [place] [id number] [address] 2020-08-14 2020-08-14 Appointmen BARBIE BROWN, [facility] UTP [id number] Univers 11:15:00 11:15:00 t; Louann [facility] 2020-07-26 2020-07-26 Appointmen BARBIE BROWN, [facility] [id number] Univers 16:00:00 16:00:00 t; Louann [facility] Results Test Description Test Time Test Comments Results Result Comments Source POCT URINALYSIS W/O SPECIFIC GRAVITY 2021-12-26 17:15:00 Test Item Value Reference Range Interpretation Comme nts POCT PH U (test code = 3254) n/a 5-8 POCT U LEUK EST (test code = 3263) n/a Negative - Negative POCT U NIT (test code = 3262) n/a Negative - Negative POCT U PROT (test code = 3259) negative Negative - Negative POCT U GLU (test code = 3256) negative Negative - Negative POCT U KETONE (test code = 3258) n/a Negative - Negative POCT U BLD (test code = 3257) n/a Negative - Negative Lab Interpretation (test code = 09958-0) Normal [facility] URINALYSIS W SPECIFIC [id number] 17:29:00 Test Item Value Reference Range Interpretation Comments POCT U SP GRAV (test code = n/a 1.005-1.025 3255) POCT PH U (test code = 3254) n/a 5-8 POCT U LEUK EST (test code = n/a Negative - Negative 3263) POCT U NIT (test code = 3262) n/a Negative - Negative POCT U PROT (test code = 3259) Negative Negative - Negative POCT U GLU (test code = 3256) Negative Negative - Negative POCT U KETONE (test code = 3258) n/a Negative - Negative POCT U UROBILI (test code = n/a 0.2-1 3260) POCT U BILI (test code = 3261) n/a Negative - Negative POCT U BLD (test code = 3257) n/a Negative - Negative POCT U COLOR (test code = 3266) POCT U APPEAR (test code = 3267) Lab Interpretation (test code = Normal 98860-5) [facility] URINALYSIS W/O SPECIFIC [id number] 15:16:00 Test Item Value Reference Range Interpretation Comments POCT PH U (test code = 3254) n/a 5-8 POCT U LEUK EST (test code = n/a Negative - Negative 3263) POCT U NIT (test code = 3262) n/a Negative - Negative POCT U PROT (test code = 3259) Negative Negative - Negative POCT U GLU (test code = 3256) Negative Negative - Negative POCT U KETONE (test code = 3258) n/a Negative - Negative POCT U BLD (test code = 3257) n/a Negative - Negative [facility] [id number] 15:15:00 Test Item Value Reference Range Interpretation Comments POCT PREG (test code = 1605) Positive On board controls acceptable with C Yes Line (test code = 3574) POCT PREG LOT # (test code = 3575) POCT PREG TEST DATE (test code = 3576) [facility][U] XRAY TIBIA FIBULA 2 VWS RIGHT [id number] 2020-08-14 10:46:00Images acquired, not reported on this accession number. [facility][U] XRAY WRIST MIN 3 VWS RIGHT [id number] 10:46:00Images acquired, not reported on this accession number.[facility]
[2022-01-28 10:06] LABS: Urine Blood Negative (Negative); Urine Glucose Negative (Negative); Urine Protein Negative (Negative)
[2022-01-28 10:16] LABS: Absolute Lymphocytes (CBC) 1.9 K/uL (0.7-4.9); Hematocrit 34.5 % (36.0-45.0); MPV 9.1 fL (7.6-11.3); RBC Red Blood Cell Count 3.86 M/uL (3.86-4.86)
[2022-01-28 10:16] LABS: Urine Bilirubin Negative (Negative); Urine Blood Negative (Negative); Urine Color Yellow (Yellow); Urine Glucose Negative (Negative); Urine Microscopic Reflex ORDER UMIC; Urine Protein Negative (Negative); Urine Urobilinogen 0.2 mg/dL (0.2-1.0); Urine pH 7.5 (5.0-7.0)
[2022-01-28 10:17] LABS: Urine Appearance SL CLOUDY (Clear)
[2022-01-28 10:31] LABS: BUN Blood Urea Nitrogen 7 mg/dL (7-18); Bicarbonate 23 mmol/L (21-32); Glucose Level 107 mg/dL (74-106); Potassium 3.5 mmol/L (3.5-5.1); Sodium Level 139 mmol/L (136-145)
--- NOTE | 2022-01-28 10:37 | RAD REPORT ---
EXAM DESCRIPTION: US - OB Limited - 01/28/2022 10:28 am CLINICAL HISTORY: Pain COMPARISON: None. TECHNIQUE: Transvaginal OB ultrasound performed FINDINGS: A single cephalic presenting gestation is identified. Heart rate normal. Placenta is anterior, eccentric to the left. No placenta previa. No secondary signs of accreta. measurements are as follows: FL:3.4 Centimeters 20 weeks 6 day The cervix is closed measuring 3 cm. No funneling is present. IMPRESSION: Single IUP with positive heart tones. Closed cervix. No gross abnormalities.
[2022-01-28 10:41] LABS: Urine Bacteria >50 /HPF (<20); Urine RBC <5 /HPF (NONE SEEN)
--- NOTE | 2022-01-28 11:45 | EDPHYS ---
Physician Documentation [facility] Name: Troy Salazar Age: 21 yrs Sex: Female : 2000 Arrival Date: 01/28/2022 Time: 09:40 Bed 18 Private MD: Josué Garay ED Physician Rk Ortiz HPI: 01/28 09:53 This 21 yrs old Female presents to ER via Ambulatory with complaints of Pelvic Pain - ms3 19 wks preg. 09:53 The patient presents with Pelvic pain bilateral. Onset: The symptoms/episode ms3 began/occurred 3 day(s) ago. The symptoms do not radiate. Associated signs and symptoms: Pertinent negatives: nausea and vomiting, fever. The symptoms are described as Tingling. Modifying factors: The symptoms are alleviated by nothing, the symptoms are aggravated by. Severity of pain: At its worst the pain was mild in the emergency department the pain is unchanged. 1-year-old female with past medical history of ADD/ADHD, anxiety, insomnia, Asperger's presents for bilateral pelvic pain that has been ongoing for 3 days. Patient states her last menstrual period was 09/12/2021. Patient states she is a -0-1-0. Patient states her pelvic discomfort is a 2/10 and described as tingling. Patient denies alleviating or inciting factors. Patient denies fevers, chills, nausea, vomiting. Patient endorses constipation. 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 LEGAL SPECIALIST: 09:51 LMP 09/12/2021 ss Historical: - Allergies: 09:51 Ceftin; ss 09:51 durafin; ss 09:51 DURICEF; ss 09:51 Vantin; ss 09:51 CEPHALOSPORINS; ss - PMHx: 09:51 ADD/ADHD; Anxiety; asbergers; insomnia; ss - PSHx: 09:51 R tib fib; ss - Immunization history:: Adult Immunizations up to date. - Social history:: Smoking status: Patient denies any tobacco usage or history of. ROS: 09:53 Constitutional: Negative for fever, and chills. Eyes: Negative for injury, pain, ms3 redness, and discharge, Neck: Negative for injury, pain, and swelling, Cardiovascular: Negative for chest pain, and palpitations. Respiratory: Negative for shortness of breath, cough, wheezing, and pleuritic chest pain, MS/Extremity: Negative for injury and deformity, Skin: Negative for injury, rash, and discoloration. 09:53 All other systems are negative. Exam: 09:53 Constitutional: This is a well developed, well nourished patient who is awake, alert, ms3 and in no acute distress. Head/Face: Normocephalic, atraumatic. Neck: Trachea midline, no cervical lymphadenopathy. Supple, full range of motion without nuchal rigidity, or vertebral point tenderness. No Meningismus. Chest/axilla: Normal chest wall appearance and motion. Nontender with no deformity. Cardiovascular: Regular rate and rhythm with a normal S1 and S2. No gallops, murmurs, or rubs. Normal PMI, no JVD. No pulse deficits. Respiratory: Lungs have equal breath sounds bilaterally, clear to auscultation and percussion. No rales, rhonchi or wheezes noted. No increased work of breathing, no retractions or nasal flaring. Abdomen/GI: Soft, non-tender, with normal bowel sounds. No distension or tympany. No guarding or rebound. No evidence of tenderness throughout. Skin: Warm, dry with normal turgor. Normal color with no rashes, no lesions, and no evidence of cellulitis. MS/ Extremity: Pulses equal, no cyanosis. Neurovascular intact. Full, normal range of motion. Psych: Awake, alert, with orientation to person, place and time. Behavior, mood, and affect are within normal limits. Vital Signs: 09:48 BP 132 / 82; Pulse 98; Resp 14; Temp 97.6(TE); Pulse Ox 99% on R/A; Weight 98.88 kg; ss Height 5 ft. 6 in. (167.64 cm); Pain 2/10; 10:00 BP 120 / 50; Pulse 98; Resp 18; Pulse Ox 100% on R/A; kj1 11:30 BP 128 / 60; Pulse 92; Resp 16 S; Pulse Ox 100% on R/A; aa5 09:48 Body Mass Index 35.19 (98.88 kg, 167.64 cm) ss MDM: 09:48 Patient medically screened. ms3 09:53 Differential diagnosis: non-specific abd pain, urinary tract infection, Round ligament ms3 pain. 11:44 Data reviewed: vital signs, nurses notes. Data interpreted: Pulse oximetry: on room air ms3 is 100 %. Interpretation: normal. Counseling: I had a detailed discussion with the patient and/or guardian regarding: the historical points, exam findings, and any diagnostic results supporting the discharge/admit diagnosis, lab results, radiology results, the need for outpatient follow up, to return to the emergency department if symptoms worsen or persist or if there are any questions or concerns that arise at home. ED course: Discussed ultrasound, labs, physical exam findings with patient. Patient follow-up with her LEGAL SPECIALIST in 2 to 3 days. Patient understands and agrees with plan. All questions were answered. Return precautions discussed include worsening symptoms, or any other concerns. Reevaluation patient is alert and oriented x4, no apparent distress, nontoxic, ambulatory in emergency department, speaking full sentences, abdomen benign.. 01/28 09:52 Order name: CBC with Diff; Complete Time: 10:52 ms3 01/28 09:52 Order name: BMP; Complete Time: 10:52 ms3 01/28 10:06 Order name: Urine Dipstick-Ancillary; Complete Time: 10:52 EDMS 01/28 10:07 Order name: Urine --Ancillary (enter results) bd 01/28 10:16 Order name: Urinalysis; Complete Time: 10:52 EDMS 01/28 09:52 Order name: US OB Limited; Complete Time: 10:52 ms3 01/28 09:52 Order name: Urine Dipstick-Ancillary (obtain specimen); Complete Time: 10:37 ms3 01/28 10:19 Order name: Urine Microscopic Only; Complete Time: 10:52 EDMS 01/28 10:44 Order name: Urine Culture EDMS Administered Medications: No medications were administered Disposition Summary: 01/28/22 11:44 Discharge Ordered Location: Home ms3 Condition: Stable ms3 Diagnosis - Pelvic pain ms3 - 19 weeks gestation of ms3 Followup: ms3 - With: Josué Garay - When: 2 - 3 days - Reason: Discharge Instructions: - Discharge Summary Sheet ms3 - Abdominal Pain During ms3 Forms: - Medication Reconciliation Form ms3 - Thank You Letter ms3 - Antibiotic Education ms3 - Prescription Opioid Use ms3 Signatures: Dispatcher [employer] EDMT Allie Boyd, RN RN ss Rk Ortiz, DO WARD ms3 Corrections: (The following items were deleted from the chart) : 09:53 URINALYSIS+U.LAB.DAVID ordered. ED EDMS
--- NOTE | 2022-01-28 11:45 | ER ---
Nurse's Notes [facility] Name: Troy Salazar Age: 21 yrs Sex: Female : 2000 Arrival Date: 01/28/2022 Time: 09:40 Bed 18 Private MD: Josué Garay Diagnosis: Pelvic pain;19 weeks gestation of Presentation: 01/28 09:48 Chief complaint: Patient states: abd pain that began 3 days ago. Pt initially thought ss it was constipation, but had a BM yesterday which did not improve the pain. Denies vaginal bleeding, N/V/D. PT reports she is 19 weeks . Coronavirus screen: Client denies travel out of the [place] in the last 14 days. Ebola Screen: Patient denies exposure to infectious person. Patient denies travel to an Ebola-affected area in the 21 days before illness onset. Initial Sepsis Screen: Does the patient meet any 2 criteria? No. Patient's initial sepsis screen is negative. Does the patient have a suspected source of infection? No. Patient's initial sepsis screen is negative. Risk Assessment: Do you want to hurt yourself or someone else? Patient reports no desire to harm self or others. Onset of symptoms was January 25, 2022. 09:48 Method Of Arrival: Ambulatory ss 09:48 Acuity: KAVON 3 ss LEGISLATIVE AIDE: 09:51 LMP 09/12/2021 ss Historical: - Allergies: 09:51 Ceftin; ss 09:51 durafin; ss 09:51 DURICEF; ss 09:51 Vantin; ss 09:51 CEPHALOSPORINS; ss - PMHx: 09:51 ADD/ADHD; Anxiety; asbergers; insomnia; ss - PSHx: 09:51 R tib fib; ss - Immunization history:: Adult Immunizations up to date. - Social history:: Smoking status: Patient denies any tobacco usage or history of. Screenin:55 Abuse screen: Denies threats or abuse. Nutritional screening: No deficits noted. aa5 Tuberculosis screening: No symptoms or risk factors identified. Fall Risk None identified. Assessment: 09:50 General: Appears comfortable, Behavior is calm, cooperative, Pt states "I am still not aa5 sure if I feel the baby moving or not yet because it's my first over 6 weeks but I do feel little flutters" . Pain: Complains of pain in right upper quadrant and left lower quadrant Pain currently is 2 out of 10 on a pain scale. Quality of pain is described as aching, pulling Pain began 2-3 days ago. Is intermittent, Aggravated by increased activity. Neuro: Level of Consciousness is awake, alert, obeys commands, Oriented to person, place, time, situation. Cardiovascular: Patient's skin is warm and dry. Respiratory: Airway is patent Respiratory effort is even, unlabored, Respiratory pattern is regular, symmetrical. GI: Abdomen is round Pt reports being 19 weeks . Patient currently denies diarrhea, nausea, vomiting. : Denies vaginal bleeding. EENT: No signs and/or symptoms were reported regarding the EENT system. Derm: Skin is pink, warm \\T\\ dry. Musculoskeletal: Range of motion: intact in all extremities. 10:30 Reassessment: Patient is alert, oriented x 3, equal unlabored respirations, skin aa5 warm/dry/pink. 12:30 Reassessment: Patient is alert, oriented x 3, equal unlabored respirations, skin aa5 warm/dry/pink. Vital Signs: 09:48 BP 132 / 82; Pulse 98; Resp 14; Temp 97.6(TE); Pulse Ox 99% on R/A; Weight 98.88 kg; Height 5 ft. 6 in. (167.64 cm); Pain 2/10; 10:00 BP 120 / 50; Pulse 98; Resp 18; Pulse Ox 100% on R/A; kj1 11:30 BP 128 / 60; Pulse 92; Resp 16 S; Pulse Ox 100% on R/A; aa5 09:48 Body Mass Index 35.19 (98.88 kg, 167.64 cm) ED Course: 09:40 Patient arrived in ED. as 09:40 Josué Garay is Private Physician. as 09:41 Rk Ortiz DO is Attending Physician. ms3 09:51 Triage completed. ss 09:51 Arm band placed on right wrist. 09:51 Patient has correct armband on for positive identification. Bed in low position. Call aa5 light in reach. Side rails up X 1. 09:54 Marlene Young, BRUNO is Primary Nurse. aa5 10:02 Initial lab(s) drawn, by me, sent to lab. Inserted saline lock: 20 gauge in right kj1 antecubital area, using aseptic technique. Blood collected. 10:29 US OB Limited In Process Unspecified. EDMS 11:42 Josué Garay is Referral Physician. ms3 12:30 No provider procedures requiring assistance completed. IV discontinued, intact, aa5 bleeding controlled, No redness/swelling at site. Pressure dressing applied. Administered Medications: No medications were administered Outcome: 11:44 Discharge ordered by MD. ms3 12:30 Discharged to home ambulatory. aa5 12:30 Condition: stable 12:30 Discharge instructions given to patient, Instructed on discharge instructions, follow up and referral plans. Demonstrated understanding of instructions, follow-up care. 12:35 Patient left the ED. bd Signatures: Dispatcher [employer] EDMS Shefali Dyson Amelia as Calderon, Audri, RN RN aa5 Allie Boyd RN RN Heaven Horton kj1 Rk Ortiz, DO ms3
[2022-01-28 12:42] VITALS: TEMP 97.6
[2022-01-28 12:43] VITALS: O2SAT 100
[2022-01-28 12:44] VITALS: BP 128/60
== END 2022-01-28 12:35 | disposition home or self-care (01) ==
LOC: ER 09:38
DX: O26.892 Other specified pregnancy related conditions, second trimester (principal); Z3A.19 19 weeks gestation of pregnancy; Z88.1 Allergy status to other antibiotic agents; Z88.3 Allergy status to other anti-infective agents; Z88.8 Allergy status to other drugs, medicaments and biological substances
CPT/HCPCS: 36415; 76815; 80048; 81003; 81015; 81025; 85025; 87086; 87088; 99283